=== PATIENT | female | born 1945 | race Caucasian/White ===

== ENCOUNTER 2018-05-21 15:12 | Outpatient (RCR) | payer SELFPAY | END 2018-05-25 23:59 | disposition home or self-care (01) | LOC: CR 15:12 | PROVIDERS: PCP Family Medicine; Visit Provider Family Medicine | DX: Z51.89 Encounter for other specified aftercare (principal); J84.10 Pulmonary fibrosis, unspecified; J98.4 Other disorders of lung | CPT/HCPCS: S9472 ==

== ENCOUNTER 2018-06-22 13:18 | Outpatient (RCR) | payer SELFPAY | END 2018-06-24 23:59 | disposition home or self-care (01) | LOC: CR 13:18 | PROVIDERS: PCP Family Medicine; Visit Provider Family Medicine | DX: Z51.89 Encounter for other specified aftercare (principal); J84.10 Pulmonary fibrosis, unspecified; J98.4 Other disorders of lung | CPT/HCPCS: S9472 ==

== ENCOUNTER 2018-07-23 13:00 | Outpatient (RCR) | payer SELFPAY | END 2018-07-25 23:59 | disposition home or self-care (01) | LOC: CR 13:00 | PROVIDERS: PCP Family Medicine; Visit Provider Family Medicine | DX: Z51.89 Encounter for other specified aftercare (principal); J84.10 Pulmonary fibrosis, unspecified; J98.4 Other disorders of lung | CPT/HCPCS: S9472 ==

== ENCOUNTER 2018-08-20 10:25 | Outpatient (CLI) | payer OTHER, SELFPAY ==
--- NOTE | 2018-08-20 09:57 | DI.RAD_ITS ---
SYMPTOMS/DIAGNOSIS: LOW BACK PAIN, RT HIP PAIN, M54.5, G89.29, OTHER CHRONIC PAIN, M25.551 LUMBAR SPINE: The exam is somewhat limited by overlying stool. There is no evidence of compression fracture, spondylolysis or spondylolisthesis. There are endplate osteophytes throughout. There is disc space narrowing at T 12 - L 1. The L 5 - S 1 disc space is not well maintained. There are facet degenerative changes greatest in the lower lumbar spine. IMPRESSION: Degenerative changes. PELVIS AND RIGHT HIP: The hip joint spaces are well maintained. There is no significant periarticular spurring. The SI joints appear intact. IMPRESSION: Negative pelvis and right hip.
[2018-08-20 11:31] LABS: ALT 24 U/L (12-78); AST 20 U/L (15-37); Albumin 3.6 g/dL (3.4-5.0); Alkaline Phosphatase 74 U/L (46-116); Anion Gap 7.3 mmol/L (3-11); BUN 12 mg/dL (7-18); Bilirubin, Total 0.3 mg/dL (0.2-1.0); CO2 28.7 mmol/L (21.0-32.0); CREATININE 1.12 mg/dL (0.55-1.02); Calcium 8.9 mg/dL (8.5-10.1); Chloride 103 mmol/L (98-107); Estimated GFR 47.96 (mL/min/1.73m2); Glucose 87 mg/dL (70-100); Potassium 4.2 mmol/L (3.5-5.1); Sodium 139 mmol/L (136-145); Total Protein 7.1 g/dL (6.4-8.2)
[2018-08-20 11:54] LABS: Cholesterol 223 mg/dL (50-200); HDL Cholesterol 54 mg/dL (40-60); Triglyceride 150 mg/dL (30-150)
[2018-08-20 12:40] LABS: LDL CHOLESTEROL 137 mg/dL (<100)
== END 2018-08-20 10:45 ==
PROVIDERS: PCP Family Medicine; Visit Provider Family Medicine
DX: M54.5 Low back pain (principal); M25.551 Pain in right hip; M47.817 Spondylosis without myelopathy or radiculopathy, lumbosacral region; G89.29 Other chronic pain; I10 Essential (primary) hypertension
CPT/HCPCS: 36415; 80053; 80061; 83721; 72110; 73502

== ENCOUNTER 2018-08-20 15:04 | Outpatient (RCR) | payer SELFPAY | END 2018-08-24 23:59 | disposition home or self-care (01) | LOC: CR 15:04 | PROVIDERS: PCP Family Medicine; Visit Provider Family Medicine | DX: J84.10 Pulmonary fibrosis, unspecified (principal); J98.4 Other disorders of lung; Z51.89 Encounter for other specified aftercare | CPT/HCPCS: S9472 ==

== ENCOUNTER 2018-08-23 01:16 | Outpatient (CLI) | payer OTHER, SELFPAY ==
--- NOTE | 2018-08-23 13:00 | DI.MAMMO_ITS ---
SYMPTOMS/DIAGNOSIS: SCREENING, Z12.31 MAMMOGRAM: Mammograms were interpreted according to the usual protocol including computer analysis with CAD system, tomosynthesis and C view imaging. The breasts are of moderate density with fairly symmetrical distribution of fibroglandular tissue. No dominant mass or clumped microcalcification is identified in either breast. The current examination is compared with previous examinations including March 2017 and there has been no gross interval change in appearance in comparison with the previous studies. CONCLUSION: No specific evidence of malignancy at this time. Routine screening examinations are suggested at yearly intervals in this age group according to the ACS/ACR guidelines. Category I. Breast density Category B. MQSA ASSESSMENT OF FINDINGS: Negative. Category 1. Patient will receive a letter notifying them of these results. BI-RADS category B. There are scattered areas of fibroglandular density.
== END 2018-08-23 01:36 ==
PROVIDERS: PCP Family Medicine; Visit Provider Family Medicine
DX: Z12.31 Encounter for screening mammogram for malignant neoplasm of breast (principal)
CPT/HCPCS: 77063; 77067

== ENCOUNTER 2018-08-25 03:49 | Outpatient (RCR) | payer SELFPAY | END 2018-09-24 23:59 | LOC: CR 03:49 | PROVIDERS: PCP Family Medicine; Visit Provider Family Medicine | DX: J84.10 Pulmonary fibrosis, unspecified (principal); J98.4 Other disorders of lung; Z51.89 Encounter for other specified aftercare ==

== ENCOUNTER 2018-10-22 13:17 | Outpatient (RCR) | payer SELFPAY | END 2018-10-25 23:59 | disposition home or self-care (01) | LOC: CR 13:17 | PROVIDERS: PCP Family Medicine; Visit Provider Family Medicine | DX: J84.10 Pulmonary fibrosis, unspecified (principal); J98.4 Other disorders of lung; Z51.89 Encounter for other specified aftercare | CPT/HCPCS: S9472 ==

== ENCOUNTER 2018-11-14 13:02 | Outpatient (RCR) | payer SELFPAY | END 2018-11-22 23:59 | disposition home or self-care (01) | LOC: CR 13:02 | PROVIDERS: PCP Family Medicine; Visit Provider Family Medicine | DX: J84.10 Pulmonary fibrosis, unspecified (principal); J98.4 Other disorders of lung; Z51.89 Encounter for other specified aftercare | CPT/HCPCS: S9472 ==

== ENCOUNTER 2018-12-05 13:42 | Outpatient (RCR) | payer SELFPAY | END 2018-12-23 23:59 | disposition home or self-care (01) | LOC: CR 13:42 | PROVIDERS: PCP Family Medicine; Visit Provider Family Medicine | DX: J84.10 Pulmonary fibrosis, unspecified (principal); J98.4 Other disorders of lung; Z51.89 Encounter for other specified aftercare | CPT/HCPCS: S9472 ==

== ENCOUNTER 2019-01-16 13:00 | Outpatient (RCR) | payer SELFPAY | END 2019-01-22 23:59 | disposition home or self-care (01) | LOC: CR 13:00 | PROVIDERS: PCP Family Medicine; Visit Provider Family Medicine | DX: J84.10 Pulmonary fibrosis, unspecified (principal); J98.4 Other disorders of lung; Z51.89 Encounter for other specified aftercare | CPT/HCPCS: S9472 ==

== ENCOUNTER 2019-01-23 04:34 | Outpatient (RCR) | payer SELFPAY | END 2019-02-22 23:59 | disposition home or self-care (01) | LOC: CR 04:34 | PROVIDERS: PCP Family Medicine; Visit Provider Family Medicine | DX: J84.10 Pulmonary fibrosis, unspecified (principal); J98.4 Other disorders of lung; Z51.89 Encounter for other specified aftercare ==

== ENCOUNTER 2019-02-24 03:53 | Outpatient (RCR) | payer SELFPAY | END 2019-03-24 23:59 | disposition home or self-care (01) | LOC: CR 03:53 | PROVIDERS: PCP Family Medicine; Visit Provider Family Medicine | DX: J84.10 Pulmonary fibrosis, unspecified (principal); J98.4 Other disorders of lung; Z51.89 Encounter for other specified aftercare ==

== ENCOUNTER 2019-03-25 15:01 | Outpatient (RCR) | payer SELFPAY | END 2019-04-24 23:59 | disposition home or self-care (01) | LOC: CR 15:01 | PROVIDERS: PCP Family Medicine; Visit Provider Family Medicine | DX: J84.10 Pulmonary fibrosis, unspecified (principal); J98.4 Other disorders of lung; Z51.89 Encounter for other specified aftercare ==

== ENCOUNTER 2019-04-25 05:09 | Outpatient (RCR) | payer SELFPAY | END 2019-05-25 23:59 | disposition home or self-care (01) | LOC: CR 05:09 | PROVIDERS: PCP Family Medicine; Visit Provider Family Medicine | DX: J84.10 Pulmonary fibrosis, unspecified (principal); J98.4 Other disorders of lung; Z51.89 Encounter for other specified aftercare ==

== ENCOUNTER 2019-06-10 13:22 | Outpatient (RCR) | payer SELFPAY | END 2019-06-24 23:59 | disposition home or self-care (01) | LOC: CR 13:22 | PROVIDERS: PCP Family Medicine; Visit Provider Family Medicine | DX: J84.10 Pulmonary fibrosis, unspecified (principal); J98.4 Other disorders of lung; Z51.89 Encounter for other specified aftercare | CPT/HCPCS: S9472 ==

== ENCOUNTER 2019-06-25 06:12 | Outpatient (RCR) | payer SELFPAY ==
--- NOTE | 2019-08-06 13:31 | PR3E_ITS ---
Wen completed Phase 2 of Pulmonary Rehabilitation for management of restrictive lung disease in 2015 and decided to join the outpatient maintenance phase to continue her physical activity. She joined the maintenance program in May of 2016 and attended regularly (3 days per week) through June of 2019. At this time patient is unable to continue her commitment to the maintenance program. We will gladly assist patient with obtaining a new referral in the future should she want to re-join the maintenance program at any time.
== END 2019-07-25 23:59 | disposition home or self-care (01) ==
LOC: CR 06:12
PROVIDERS: PCP Family Medicine; Visit Provider Family Medicine
DX: J84.10 Pulmonary fibrosis, unspecified (principal); J98.4 Other disorders of lung; Z51.89 Encounter for other specified aftercare

== ENCOUNTER 2019-08-26 07:00 | Outpatient (CLI) | payer OTHER, SELFPAY ==
[2019-08-26 12:47] LABS: Hemoglobin A1C 5.8 % (4.5-6.2)
[2019-08-26 12:51] LABS: ALT 24 U/L (14-59); AST 19 U/L (15-37); Albumin 3.7 g/dL (3.4-5.0); Alkaline Phosphatase 74 U/L (46-116); Anion Gap 7.6 mmol/L (3-11); BUN 14 mg/dL (7-18); Bilirubin, Total 0.3 mg/dL (0.2-1.0); CO2 31.4 mmol/L (21.0-32.0); Calcium 9.7 mg/dL (8.5-10.1); Calculated LDL 145 mg/dL; Chloride 103 mmol/L (98-107); Cholesterol 233 mg/dL (<200); Estimated GFR 44.16 (mL/min/1.73m2); Glucose 84 mg/dL (74-106); HDL Cholesterol 49 mg/dL (40-60); Potassium 4.7 mmol/L (3.5-5.1); Sodium 142 mmol/L (136-145); TSH (W/Ref FT4) 3.87 uIU/mL (0.36-3.74); Total Protein 7.3 g/dL (6.4-8.2); Triglyceride 199 mg/dL (<150)
[2019-08-26 13:13] LABS: FREE T4 0.76 ng/dL (0.76-1.46)
== END 2019-08-26 07:20 ==
PROVIDERS: PCP Family Medicine; Visit Provider Family Medicine
DX: E11.9 Type 2 diabetes mellitus without complications (principal); I10 Essential (primary) hypertension; R06.02 Shortness of breath; I27.20 Pulmonary hypertension, unspecified; J98.4 Other disorders of lung
CPT/HCPCS: 36415; 80053; 80061; 83036; 84439; 84443

== ENCOUNTER 2019-09-03 01:11 | Outpatient (CLI) | payer OTHER, SELFPAY ==
[2019-09-03] MEDS: Omnipaque 350 MG/ML 100 ML BTL IJ (14:58)
[2019-09-03] MEDS: Normal Saline Flush 10 ML SYR IVP (14:59)
--- NOTE | 2019-09-03 15:00 | DI.CT_ITS ---
EXAM: CT CHEST W CLINICAL HISTORY: SOB R06.02; PULMONARY HTN I27.20; H/O DVT Z86.718 TECHNIQUE: Post IV contrast CHEST FOR PULMONARY EMBOLUS from 12/29/2015 FINDINGS: Heart size is normal. No pleural or pericardial effusions are seen. There is again noted to be chacha vation of the right diaphragm. There is adjacent basilar atelectasis. The liver is enlarged and sharan ws mild fatty infiltration. A hiatal hernia is seen. There is fluid in the lower esophagus which co uld indicate reflux. There are no visible emphysematous or fibrotic changes. There is no evidence o f bronchiectasis, infiltrate, pleural or pericardial effusion. There is mild dilatation of the main pulmonary arteries. IMPRESSION: Mild dilatation of the pulmonary arteries consistent with patient's history of pulmonary hypertension . Stable elevation of the right diaphragm. Hiatal hernia.
== END 2019-09-03 01:31 ==
PROVIDERS: PCP Family Medicine; Visit Provider Family Medicine
DX: I27.20 Pulmonary hypertension, unspecified (principal); R06.02 Shortness of breath; Z86.718 Personal history of other venous thrombosis and embolism; K44.9 Diaphragmatic hernia without obstruction or gangrene
CPT/HCPCS: 71260; J3490

== ENCOUNTER 2019-09-05 00:38 | Outpatient (CLI) | payer OTHER, SELFPAY ==
--- NOTE | 2019-09-05 07:48 | DI.US_ITS ---
APPROVED REPORT EXAM: Comprehensive 2D, Doppler, and color-flow Echocardiogram Patient Location: Out-Patient Bicycle Mechanic: Corrie Edmonds RDCS (AE) Rhythm: NSR Indications: SOB pulm HTN Restrictive lung disease r06.02, i27.20, j98.4 Conclusion Left Ventricle : The left ventricle is normal size. The left ventricular systolic function is normal. The left ventricular ejection fraction is within the normal range. Top normal left ventricular wall thickeness There is normal LV segmental wall motion. Diastolic function is indeterminate but there is evidence of abnormal relaxation with elevated filling pressures. LVEF is estimated to be 55-60%. Right Ventricle : The right ventricle appears normal size. The right ventricular systolic function ap pears normal. Atria : The left atrium size is top normal. The right atrium size is normal. Aortic Valve : The Aortic valve is mildly sclerotic. Aortic valve is trileaflet. There is no aortic v alvular stenosis. Trace aortic regurgitation. Mitral Valve : Mitral valve leaflets are thickened. Mild mitral annular calcification. No evidence of mitral valve stenosis. Tricuspid Valve : The tricuspid valve leaflets are thickened mildly , but open well. Trivial to mild tricuspid regurgitation. Great Vessels : The ascending aorta is dilated (3.9cm). The IVC was not well visualized. Estimated R VSP is 30 mmHg +RAP. Compared to prior echocardiogram dated 11/27/2015: Estimated RVSP has decreased. There are no other si gnificant changes. Wall motion Left Ventricle The left ventricle is normal size. The left ventricular systolic function is normal. The left ventric ular ejection fraction is within the normal range. Top normal left ventricular wall thickeness There is normal LV segmental wall motion. Diastolic function is indeterminate but there is evidence of abno rmal relaxation with elevated filling pressures. LVEF is estimated to be 55-60%. Right Ventricle The right ventricle appears normal size. The right ventricular systolic function appears normal. Atria The left atrium size is top normal. The right atrium size is normal. Aortic Valve The Aortic valve is mildly sclerotic. Aortic valve is trileaflet. There is no aortic valvular stenosi s. Trace aortic regurgitation. Mitral Valve Mitral valve leaflets are thickened. Mild mitral annular calcification. No evidence of mitral valve s tenosis. Mild mitral regurgitation. Tricuspid Valve The tricuspid valve leaflets are thickened mildly , but open well. Trivial to mild tricuspid regurgit ation. Pulmonic Valve Pulmonic valve is not well visualized. Great Vessels The aortic root is normal in size. The ascending aorta is dilated (3.9cm). The IVC was not well visua lized. Estimated RVSP is 30 mmHg +RAP. Pericardium There is no pericardial effusion. 2D Dimensions IVSd 1.05 cm F: 0.6-1.0 LV EDV A2C 72.00 mL PWd 1.00 cm F: 0.6 - 1.0 LV EDV A4C 105.80 mL LVDd 4.50 cm F: 3.8 - 5.2 LA Volume Index A2C 22.09 mL/m2 LVDs 2.70 cm F: 2.2 - 3.5 LA Volume Index A4C 25.56 mL/m2 Aortic Root 3.25 cm F: 2.7 - 3.3 LA Volume Index Biplane 23.97 mL/m2 RVID Base (AP4) 3.90 cm (M/F) 2.5-4.1 LA Area A4C 17.78 cm2 RA Area A4C 14.40 cm2 LA Area A2C 16.38 cm2 LVOT 1.85 cm (M/F) 1.5-2.5 EF AP4 51.80 % Ascending Aorta 3.91 cm F: 2.3 - 3.1 EF AP2 60.42 % LVEF (Teich) 70.26 % EF BP 56.29 % LVEF (Seymour's) 56.29 % F: 54 - 74 LV Volume 66.52 mL F: 46 - 106 LV Volume Index 34.28 mL/m2 F: 29 - 61 FS 39.55 % LV Diastology E/A Ratio 0.5 MED E' 0.04 (>0.07 m/s) LV E/e MED 15.00 (<14) LAT E' 0.04 (>0.1 m/s) LV E/e LAT 12.65 (<14) Pulm Vein s 0.48 m/s PV S/D Ratio 1.36 Pulm Vein d 0.35 m/s Pulm Vein a 0.32 m/s A-A Duration 118.79 msec Aortic Valve LVOT Area 2.72 cm2 LVOT Peak Aristeo. 0.80 m/s LVOT Mean Aristeo. 0.64 m/s LVOT Peak Gr. 2.85 mmHg FLORI Vmax Index 0.78 cm2/m2 LVOT Mean Gr. 1.75 mmHg LVOT VTI 0.20 m FLORI Mean Aristeo. Index 0.77 cm2/m2 AoV Peak Aristeo. 1.52 (0.5-1.3 m/s) AoV Mean Aristeo. 1.16 m/s AO Peak GR. 9.19 mmHg AO Mean GR. 5.67 (<5 mmHg) VTI Ratio 0.68 FLORI (VTI) 0.95 (2.5-4.5 cm2) FLORI (VTI) Index 0.95 cm/m2 Mitral Valve MV E Max Aristeo. 0.56 (0.4-1.3 m/s) MVA VTI 4.03 (4.0-6.0 cm2) MV A Velocity 1.05 (0.4-1.3 m/s) E/A Ratio 0.52 MV Decel. Time 355.20 (160-240 msec) MV PHT 103.02 msec MVA PHT 2.10 cm2 Tricuspid Valve TR P. Velocity 2.73 m/s TV Regurg Vmax 2.73 m/s RAP Estimate 8.00 mmHg RVSP 38.00 mmHg TR P. Gradient 29.80 mmHg
== END 2019-09-05 00:58 ==
PROVIDERS: PCP Family Medicine; Visit Provider Family Medicine
DX: I27.20 Pulmonary hypertension, unspecified (principal); R06.02 Shortness of breath; J98.4 Other disorders of lung; I10 Essential (primary) hypertension
CPT/HCPCS: 93306

== ENCOUNTER 2019-10-09 15:39 | Outpatient (CLI) | payer OTHER, SELFPAY ==
--- NOTE | 2019-10-09 15:32 | DI.RAD_ITS ---
EXAM: XR CHEST 2V PA AND LATERAL INDICATION: COUGH, SOB, ACUTE URI, J06.9, R06.02, R05. COMPARISON: CHEST 2 VIEWS PA,LAT from 10/23/2015 TECHNIQUE: 2D digital imaging was performed. FINDINGS: Heart size and pulmonary vasculature are stable and within normal limits. There is stable elevation of the right hemidiaphragm. Lungs are clear. No pleural effusion or pneumothorax is identified. Ag e-appropriate degenerative changes are seen in the spine. IMPRESSION: No acute pulmonary process.
== END 2019-10-09 15:59 ==
PROVIDERS: PCP Family Medicine; Visit Provider Family Medicine
DX: R05 Cough (principal); R06.02 Shortness of breath; J06.9 Acute upper respiratory infection, unspecified
CPT/HCPCS: 71046

== ENCOUNTER 2019-11-04 07:55 | Outpatient (CLI) | payer OTHER, SELFPAY ==
[2019-11-04 11:27] LABS: TSH (W/Ref FT4) 2.93 uIU/mL (0.36-3.74)
== END 2019-11-04 08:15 ==
PROVIDERS: PCP Family Medicine; Visit Provider Family Medicine
DX: E03.9 Hypothyroidism, unspecified (principal)
CPT/HCPCS: 36415; 84443

== ENCOUNTER 2020-03-04 01:32 | Outpatient (CLI) | payer MEDICARE, SELFPAY ==
[2020-03-04 10:52] LABS: Bilirubin Negative (Negative); Blood Trace-intact (Negative); Clarity Cloudy (Clear); Glucose Negative (Negative); Ketones Negative (Negative); Leukocyte Esterase Small (Negative); Nitrite Positive (Negative); Urobilinogen 0.2 EU/dL (Up TO 0.2)
[2020-03-04 11:07] LABS: Bacteria Many HPF (Negative)
[2020-03-04 11:08] LABS: C & S Indicated? No/Sq. Contamination; Epithelial Cells Many HPF (Negative)
[2020-03-04 11:09] LABS: TSH (W/Ref FT4) 2.11 uIU/mL (0.36-3.74)
== END 2020-03-04 01:52 ==
PROVIDERS: PCP Family Medicine; Visit Provider Family Medicine
DX: E03.9 Hypothyroidism, unspecified (principal); R30.0 Dysuria; G47.30 Sleep apnea, unspecified
CPT/HCPCS: 36415; 81003; 81015; 84443

== ENCOUNTER 2021-02-02 10:03 | Outpatient (REF) | payer MEDICARE, SELFPAY ==
[2021-02-02 13:38] LABS: HCT 41.6 % (36.0-46.0); HGB 13.3 g/dL (11.2-15.7); MCH 31.4 pg (27.0-33.0); MCV 98.1 fL (80-95); MPV 10.7 fL (8.0-11.0); Platelet Count 271 10^3/uL (130-400); RBC 4.24 10^6/uL (3.93-5.22); RDW 13.9 % (11.7-14.6); RDW-SD 50.3 fL; WBC 6.42 10^3/uL (4.4-10.8)
[2021-02-02 14:12] LABS: ALT 41 U/L (14-59); AST 24 U/L (15-37); Albumin 3.7 g/dL (3.4-5.0); Alkaline Phosphatase 80 U/L (46-116); Anion Gap 7.6 mmol/L (3-11); BUN 17 mg/dL (7-18); Bilirubin, Total 0.3 mg/dL (0.2-1.0); CO2 30.4 mmol/L (21.0-32.0); CREATININE 1.4 mg/dL (0.55-1.02); Calcium 9.5 mg/dL (8.5-10.1); Calculated LDL 111 mg/dL (<100); Chloride 103 mmol/L (98-107); Cholesterol 196 mg/dL (<200); Estimated GFR 36.86 (mL/min/1.73m2); Glucose 94 mg/dL (74-106); HDL Cholesterol 50 mg/dL (40-60); Potassium 4.3 mmol/L (3.5-5.1); Sodium 141 mmol/L (136-145); Total Protein 7.3 g/dL (6.4-8.2); Triglyceride 178 mg/dL (<150)
[2021-02-02 14:18] LABS: Hemoglobin A1C 5.5 % (<5.7)
== END 2021-02-02 10:04 | disposition home or self-care (01) ==
LOC: LBN 10:03
PROVIDERS: PCP Family Medicine; Visit Provider Family Medicine
DX: E11.9 Type 2 diabetes mellitus without complications (principal); E78.5 Hyperlipidemia, unspecified; E03.9 Hypothyroidism, unspecified; J98.4 Other disorders of lung; I07.1 Rheumatic tricuspid insufficiency; G25.81 Restless legs syndrome; G47.30 Sleep apnea, unspecified
CPT/HCPCS: 80053; 80061; 85027; 83036; 84443

== ENCOUNTER 2022-04-15 02:28 | Outpatient (CLI) | payer MEDICARE, SELFPAY ==
[2022-04-15 13:08] LABS: Hemoglobin A1C 5.7 % (<5.7)
[2022-04-15 13:14] LABS: ALT 26 U/L (14-59); AST 25 U/L (15-37); Albumin 3.5 g/dL (3.4-5.0); Alkaline Phosphatase 69 U/L (46-116); Anion Gap 10.7 mmol/L (3-11); BUN 24 mg/dL (7-18); Bilirubin, Total 0.4 mg/dL (0.2-1.0); CO2 27.3 mmol/L (21.0-32.0); CREATININE 1.4 mg/dL (0.55-1.02); Calcium 9.3 mg/dL (8.5-10.1); Calculated LDL 110 mg/dL (<100); Chloride 101 mmol/L (98-107); Cholesterol 182 mg/dL (<200); Estimated GFR 36.66 (mL/min/1.73m2); Glucose 82 mg/dL (74-106); HDL Cholesterol 46 mg/dL (40-60); Potassium 4.2 mmol/L (3.5-5.1); Sodium 139 mmol/L (136-145); TSH (W/Ref FT4) 1.52 uIU/mL (0.36-3.74); Total Protein 7.3 g/dL (6.4-8.2); Triglyceride 130 mg/dL (<150)
== END 2022-04-15 02:29 | disposition home or self-care (01) ==
LOC: LOS 02:28
PROVIDERS: PCP Family Medicine; Visit Provider Family Medicine
DX: I10 Essential (primary) hypertension (principal); E78.5 Hyperlipidemia, unspecified; E11.9 Type 2 diabetes mellitus without complications; E66.8 Other obesity; Z68.42 Body mass index [BMI] 45.0-49.9, adult
CPT/HCPCS: 36415; 80053; 80061; 83036; 84443

== ENCOUNTER 2022-08-30 14:44 | Outpatient (CLI) | payer MEDICARE, SELFPAY ==
--- NOTE | 2022-08-30 13:45 | DI.RAD_ITS ---
Exam(s) XR FOOT RT COMPLETE EXAM: XR FOOT RT COMPLETE CLINICAL HISTORY: evaluate pathology,rt foot pain, m79.671. TECHNIQUE: 2D digital imaging was performed of the right foot. Three images were obtained. AP, obl ique and lateral views were obtained. COMPARISON: No exams were available for comparison FINDINGS: BONES: No acute fracture is present. No bony destructive lesion is seen. JOINTS: No dislocation present. There are degenerative changes seen at the 1st MTP joint with periart icular spurring present. SOFT TISSUE: Normal. IMPRESSION: Degenerative changes of the right foot predominantly at the 1st MTP joint. No acute abnormality. DATA REPOSITORY: RADIATION DOSE DELIVERED:
== END 2022-08-30 15:04 ==
LOC: DI 14:45
PROVIDERS: PCP Family Medicine; Visit Provider Nurse Practitioner Family
DX: M19.071 Primary osteoarthritis, right ankle and foot (principal)
CPT/HCPCS: 73630

== ENCOUNTER 2022-12-21 09:30 | Outpatient (CLI) | payer MEDICARE, SELFPAY ==
[2022-12-21 12:33] LABS: HCT 40.8 % (36.0-46.0); HGB 13.2 g/dL (11.2-15.7); MCH 31.5 pg (27.0-33.0); MCHC 32.4 % (32.0-36.0); MCV 97 fL (80-95); Platelet Count 324 10^3/uL (130-400); RBC 4.19 10^6/uL (3.93-5.22); RDW 13.7 % (11.7-14.6); RDW-SD 48.8 fL; WBC 6.35 10^3/uL (4.4-10.8)
[2022-12-21 12:57] LABS: ALT 28 U/L (14-59); AST 20 U/L (15-37); Albumin 3.4 g/dL (3.4-5.0); Alkaline Phosphatase 80 U/L (46-116); Anion Gap 5.7 mmol/L (3-11); BUN 20 mg/dL (7-18); Bilirubin, Total 0.3 mg/dL (0.2-1.0); CO2 30.3 mmol/L (21.0-32.0); CREATININE 1.4 mg/dL (0.55-1.02); Calcium 8.8 mg/dL (8.5-10.1); Calculated LDL 102 mg/dL (<100); Chloride 104 mmol/L (98-107); Cholesterol 191 mg/dL (<200); Estimated GFR 39.23 (mL/min/1.73m2); Glucose 94 mg/dL (74-106); HDL Cholesterol 53 mg/dL (40-60); Potassium 4.1 mmol/L (3.5-5.1); Sodium 140 mmol/L (136-145); TSH (W/Ref FT4) 3.14 uIU/mL (0.36-3.74); Total Protein 7.3 g/dL (6.4-8.2); Triglyceride 183 mg/dL (<150)
== END 2022-12-21 09:31 | disposition home or self-care (01) ==
LOC: LOS 09:30
PROVIDERS: PCP Family Medicine; Visit Provider Family Medicine
DX: E03.9 Hypothyroidism, unspecified (principal); I10 Essential (primary) hypertension; F41.8 Other specified anxiety disorders; F32.89 Other specified depressive episodes; R73.03 Prediabetes; I27.20 Pulmonary hypertension, unspecified
CPT/HCPCS: 36415; 80053; 80061; 85027; 84443

== ENCOUNTER → 2023-06-06 00:48 | Outpatient (CLI) | payer MEDICARE, SELFPAY ==
--- NOTE | 2023-06-06 07:30 | DI.DEXA_ITS ---
Exam(s) XR DEXA BONE DENSITY W/WO MONICA EXAM: XR DEXA BONE DENSITY W/WO MONICA CLINICAL HISTORY: screening for osteoporosis in postmenopausal woman,z78.0 TECHNIQUE: [employer] Horizon C densitometer analysis of left hip, lumbar spine and left forearm. Lat eral survey image of the thoracic and lumbar spine. COMPARISON: 2003 FINDINGS: Lateral view of the thoracic and lumbar spine shows no evidence of compression fractures. Bone mineral density measurements of the lumbar spine correspond to a total T-score of 2.0, in the n ormal range. This represents a 16.1 percent increase from 2003. the increase in bone mineral density could be in part due to increasing degenerative changes. Bone mineral density measurements of the left hip correspond to a total T-score of 1.3 . The femoral neck T-score is -0.3, in the normal range. This represents a 5.2 percent increase from the prior e xam.. Theleft forearm bone mineral density measurements correspond to a T-score of the distal 3rd of 0.5, i n the normal range. The forearm was not analyzed on the prior exam . IMPRESSION: Normal bone mineral density
--- NOTE | 2023-06-06 10:09 | DI.MAMMO_ITS ---
Exam(s) MAMMO SCREENING EXAM: MAMMO SCREENING CLINICAL HISTORY: screening, z12.39 TECHNIQUE: Mammograms were interpreted according to the usual protocol including computer analysis w [employer] CAD system, tomosynthesis and C-view imaging. COMPARISON: 2013 through 2017 FINDINGS: The breasts are composed of scattered fibroglandular densities, Breast Density category B. No suspicious masses or suspicious microcalcifications are seen. Scattered bilateral coarse calcific ations again noted. No skin thickening or abnormal axillary lymph nodes are seen. There has been no significant change from prior exams. IMPRESSION: BI-RADS Cat 2 - Benign Findings Yearly screening mammography is recommended. Breast Density - Category B, scattered fibroglandular densities. A negative radiographic report should not delay biopsy if a dominant or clinically suspicious mass is present. Up to ten percent of cancers are not identified on mammography. A negative report may reinforce clinical impression. Adenosis and dense breasts may obscure an underlying neoplasm. False positive reports average 6 to 10%. Patient will receive a letter notifying them of these results.
== END ==
PROVIDERS: PCP Family Medicine; Visit Provider Family Medicine
DX: Z78.0 Asymptomatic menopausal state (principal); Z12.31 Encounter for screening mammogram for malignant neoplasm of breast; Z13.820 Encounter for screening for osteoporosis
CPT/HCPCS: 77063; 77067; 77080

== ENCOUNTER 2023-07-13 04:53 | Outpatient (CLI) | payer MEDICARE, SELFPAY ==
[2023-07-13 12:41] LABS: Hemoglobin A1C 5.3 % (<5.7)
[2023-07-13 12:44] LABS: ALT 25 U/L (14-59); AST 20 U/L (15-37); Albumin 3.4 g/dL (3.4-5.0); Alkaline Phosphatase 71 U/L (46-116); BUN 24 mg/dL (7-18); Bilirubin, Total 0.4 mg/dL (0.2-1.0); CREATININE 1.5 mg/dL (0.55-1.02); Calcium 9.4 mg/dL (8.5-10.1); Calculated LDL 145 mg/dL (<100); Chloride 103 mmol/L (98-107); Cholesterol 218 mg/dL (<200); Estimated GFR 35.89 (mL/min/1.73m2); Glucose 87 mg/dL (74-106); HDL Cholesterol 49 mg/dL (40-60); Potassium 4.3 mmol/L (3.5-5.1); Sodium 140 mmol/L (136-145); TSH (W/Ref FT4) 1.61 uIU/mL (0.36-3.74); Total Protein 7.6 g/dL (6.4-8.2); Triglyceride 124 mg/dL (<150)
== END 2023-07-13 04:54 | disposition home or self-care (01) ==
LOC: LOS 04:53
PROVIDERS: PCP Family Medicine; Visit Provider Family Medicine
DX: E11.9 Type 2 diabetes mellitus without complications (principal); E78.5 Hyperlipidemia, unspecified; R73.03 Prediabetes; Z68.42 Body mass index [BMI] 45.0-49.9, adult
CPT/HCPCS: 36415; 80053; 80061; 83036; 84443

== ENCOUNTER 2023-10-19 03:57 | Outpatient (CLI) | payer MEDICARE, SELFPAY ==
[2023-10-19 12:44] LABS: ALT 28 U/L (14-59); AST 22 U/L (15-37); Albumin 3.7 g/dL (3.4-5.0); Alkaline Phosphatase 72 U/L (46-116); Anion Gap 6.8 mmol/L (3-11); BUN 26 mg/dL (7-18); Bilirubin, Total 0.6 mg/dL (0.2-1.0); CO2 30.2 mmol/L (21.0-32.0); CREATININE 1.4 mg/dL (0.55-1.02); Calcium 9.6 mg/dL (8.5-10.1); Calculated LDL 86 mg/dL (<100); Chloride 101 mmol/L (98-107); Cholesterol 159 mg/dL (<200); Estimated GFR 38.99 (mL/min/1.73m2); Glucose 83 mg/dL (74-106); HDL Cholesterol 58 mg/dL (40-60); Potassium 4.1 mmol/L (3.5-5.1); Sodium 138 mmol/L (136-145); TSH (W/Ref FT4) 1.84 uIU/mL (0.36-3.74); Total Protein 7.9 g/dL (6.4-8.2); Triglyceride 76 mg/dL (<150)
== END 2023-10-19 03:58 | disposition home or self-care (01) ==
LOC: LOS 03:57
PROVIDERS: PCP Family Medicine; Visit Provider Family Medicine
DX: I10 Essential (primary) hypertension (principal); E03.9 Hypothyroidism, unspecified
CPT/HCPCS: 36415; 80053; 80061; 82043; 82570; 84443

== ENCOUNTER 2023-10-20 11:21 | Outpatient (REF) | payer MEDICARE, SELFPAY ==
[2023-10-20 13:59] LABS: COMMENT (LAB VIEW ONLY) 77.17 mg/dL; Microalb ug/mg Crea 18.8 ug/mg Cr
== END 2023-10-20 11:22 | disposition home or self-care (01) ==
LOC: LBN 11:21
PROVIDERS: PCP Family Medicine; Visit Provider Family Medicine
DX: E11.9 Type 2 diabetes mellitus without complications (principal)
CPT/HCPCS: 82043; 82570

== ENCOUNTER 2024-06-28 00:57 | Inpatient (IN) | payer OTHER, SELFPAY ==
[2024-06-28] VITALS (57 sets, daily range): BP systolic 94–203; BP diastolic 55–92; PULSE 56–78; RESP 2–28; TEMP 36.4–37.5; O2SAT 2–100
--- NOTE | 2024-06-28 00:45 | RT.EKG_ITS ---
APPROVED REPORT Exam: Resting ECG Reason for Exam: trouble brathing Patient Location: E HR:60 bpm ECG Measurements Heart Rate 60 AXIS AL 176 P 9 QRSd 107 QRS -32 QT 436 T 28 QTc 437 Conclusion Sinus rhythm...normal P axis, V-rate 60- 99 Probable left atrial enlargement...P >50mS, <-0.10mV V1 Left ventricular hypertrophy...multiple LVH criteria Normal Martin Nonspecific ST-T changes
--- NOTE | 2024-06-28 01:03 | W.ED.GENAD ---
Discharge Plan Disposition Patient Disposition: Admit to [facility] Condition: Fair Discharge Details Clinical Impression: Ground glass opacity present on imaging of lung, Hypoxemia Primary Care Provider: Scarlet So ED Provider: Shahzad Tompkins [place] Meds and New Rx's Prescriptions: No Action fluticasone propionate 50 mcg/actuation spray,suspension 1 spray NS BID PRN (Reason: nasal congestion) Qty: 1 7RF albuterol sulfate [ProAir HFA] 90 mcg/actuation HFA aerosol inhaler 1 - 2 puff Inhalation Q4H PRN Qty: 1 4RF lorazepam 0.5 mg tablet 0.5 mg PO DAILY PRN (Reason: anxiety) Qty: 30 0RF nystatin 100,000 unit/gram powder 1 applic topical QID Qty: 60 0RF Rx Instructions: apply powder every 6 hours x 2weeks and as needed oxybutynin chloride 5 mg tablet 5 mg PO BID Qty: 180 3RF Rx Instructions: DITROPAN escitalopram oxalate 20 mg tablet 20 mg PO DAILY Qty: 90 3RF metoprolol succinate 25 mg tablet extended release 24 hr 25 mg PO DAILY Qty: 90 3RF losartan 100 mg tablet 100 mg PO DAILY Qty: 90 3RF amitriptyline 100 mg tablet 100 mg PO HS Qty: 90 4RF semaglutide (weight loss) 0.5 mg/0.5 mL pen injector 0.5 mg subcut QWEEK Qty: 8 4RF Rx Instructions: ok to compound. DO not issue a pen injector levothyroxine 50 mcg tablet 50 mcg PO DAILY Qty: 90 4RF atorvastatin 40 mg tablet 40 mg PO DAILY Qty: 90 3RF acetaminophen [Tylenol] 325 MG tablet 650 mg PO Q4H PRN PRN HPI General Mode of arrival: ambulatory. Date/Time Provider Initiated Documentation: 06/28/24 01:01. Limitations to Documentation: no limitations. Information obtained by: patient, RN notes reviewed and old records reviewed. HPI Narrative: Patient presents to ED with complaint of sore throat, cough, hoarseness, shortness of breath. Patient reports sore throat began this afternoon. This evening she has developed a cough and is hoarse. She is short of breath with exertion. She denies any fever, chest pain, abdominal pain. She has had 2 episodes of posttussive emesis. Denies any diarrhea. Did get her RSV and COVID shot 2 weeks ago. She is supposed to be getting her flu shot this weekend. Denies any lung disease but old records report restrictive lung disease. She is not, however, typically on oxygen. Related Data Home Medications ?Medication ?Instructions ?Recorded ?Confirmed acetaminophen 325 mg tablet 650 mg PO Q4H PRN PRN 10/23/17 06/28/24 (Tylenol) fluticasone propionate 50 1 spray NS BID PRN nasal 08/26/19 06/28/24 mcg/actuation nasal congestion ##1 spray,suspension albuterol sulfate 90 mcg/actuation 1 - 2 puff inhalation Q4H PRN ##1 02/02/21 06/28/24 aerosol inhaler (ProAir HFA) lorazepam 0.5 mg tablet 0.5 mg PO DAILY PRN anxiety #30 01/07/22 06/28/24 tabs nystatin 100,000 unit/gram topical 1 applic topical QID #60 grams 05/26/23 06/28/24 powder oxybutynin chloride 5 mg tablet 5 mg PO BID #180 tab-caps 10/16/23 06/28/24 escitalopram oxalate 20 mg tablet 20 mg PO DAILY #90 tab-caps 01/18/24 06/28/24 losartan 100 mg tablet 100 mg PO DAILY #90 tabs 01/29/24 06/28/24 metoprolol succinate 25 mg 25 mg PO DAILY #90 tabs 01/29/24 06/28/24 tablet,extended release 24 hr amitriptyline 100 mg tablet 100 mg PO HS #90 tabs 02/06/24 06/28/24 semaglutide (weight loss) 0.5 0.5 mg (0.5 mL) subcut QWEEK #8 mL 05/03/24 06/28/24 mg/0.5 mL subcutaneous pen injector atorvastatin 40 mg tablet 40 mg PO DAILY #90 tabs 05/21/24 06/28/24 levothyroxine 50 mcg tablet 50 mcg PO DAILY #90 tabs 05/21/24 06/28/24 Previous Rx's ?Medication ?Instructions ?Recorded fluticasone propionate 50 1 spray NS BID PRN nasal 08/26/19 mcg/actuation nasal congestion ##1 spray,suspension albuterol sulfate 90 mcg/actuation 1 - 2 puff inhalation Q4H PRN ##1 02/02/21 aerosol inhaler (ProAir HFA) lorazepam 0.5 mg tablet 0.5 mg PO DAILY PRN anxiety #30 01/07/22 tabs nystatin 100,000 unit/gram topical 1 applic topical QID #60 grams 05/26/23 powder oxybutynin chloride 5 mg tablet 5 mg PO BID #180 tab-caps 10/16/23 escitalopram oxalate 20 mg tablet 20 mg PO DAILY #90 tab-caps 01/18/24 losartan 100 mg tablet 100 mg PO DAILY #90 tabs 01/29/24 metoprolol succinate 25 mg 25 mg PO DAILY #90 tabs 01/29/24 tablet,extended release 24 hr amitriptyline 100 mg tablet 100 mg PO HS #90 tabs 02/06/24 semaglutide (weight loss) 0.5 0.5 mg (0.5 mL) subcut QWEEK #8 mL 05/03/24 mg/0.5 mL subcutaneous pen injector atorvastatin 40 mg tablet 40 mg PO DAILY #90 tabs 05/21/24 levothyroxine 50 mcg tablet 50 mcg PO DAILY #90 tabs 05/21/24 Allergies Allergy/AdvReac Type Severity Reaction Status Date / Time gemfibrozil AdvReac Mild Pt Unverified 06/28/24 01:06 believes medicatation was ineffective lisinopril AdvReac Mild COUGH Unverified 06/28/24 01:06 hydrochlorothiazide AdvReac Unknown Pt Unverified 06/28/24 01:06 believes medication was ineffective Review of Systems Narrative: Per HPI Exam Narrative Exam Narrative: Const: Elderly obese female in NAD. VS per triage. HEENT: NC/AT. Normal facial exam. OP is clear. Neck: Supple. Trachea midline. Lungs: Mild tachypnea. Diffuse scattered rhonchi. Cor: RRR without murmur. Good radial pulses. GI: Soft/ND/NT. Neuro: A+O x 3. Normal speech, mentation, gait. Cranial nerves II - XII grossly intact. No gross motor or sensory deficit. Ext: No C/C/E. Medical Decision Making Patient presenting to ED with sore throat, cough, shortness of breath with exertion. She received her RSV and COVID shot 2 weeks ago. She has not yet had a flu shot. She denies fever, headache, chest pain, body aches. She was somewhat tachypneic walking in and saturations on room air in the room were 88%. Old records show that patient does have history of restrictive lung disease. She has some scattered rhonchi. Oropharynx is clear. Turned off the oxygen to see what she does at rest. Fluvid, chest x-ray, laboratory studies obtained. EKG obtained by nursing on arrival is sinus rhythm with nonspecific ST changes, nothing acute. 02:15 - Patient's laboratory studies with normal white count and hemoglobin. Creatinine is a little high at baseline. Liver function normal. Fluvid swab negative. Chest x-ray per my review with elevated diaphragms bilaterally, no obvious airspace disease, no significant change from previous. Preliminary radiology read agrees. Patient does not desaturate with ambulation but becomes tachypneic with increased work of breathing. Saturations then decline once she sits and rests. Given inadequate views by x-ray with evidence of hypoxemia post ambulation will obtain CTA of chest. 03:15 - Patient's CTA of chest is negative for pulmonary embolus. She does however have groundglass opacities in all lung mcleod consistent with infection, less likely fluid though I have added a BNP on. Will cover with ceftriaxone and azithromycin. Would repeat Fluvid later today. Discussed with hospitalist for admission. Discussed with patient and . Medical Records Medical records reviewed: Yes I reviewed the patient's medical records. Medical records narrative: see [facility] Imaging Data Radiologic Study: Attestation: I personally reviewed and interpreted this imaging study as follows: Imaging: X-Ray My impression: see [facility] Lab Data Lab results reviewed: Yes I reviewed the patient's lab results. Lab results narrative: see [facility] ECG Data Attestation: I personally reviewed and interpreted this ECG (s) as follows: Prior ECG tracings: not available for review Interpretation: see EKG/[facility] PFSH All Active Problems (Updated 06/28/24 @ 03:26 by Shahzad Tompkins MD) Hypoxemia (Acute) Ground glass opacity present on imaging of lung (Acute) Carpal tunnel syndrome of left wrist (Acute 05/20/15) Abnormal EKG (Acute 11/26/15) Spastic bladder (Acute) Hypoxia (Acute 12/14/15) restrictive by PFT 2016 Cough (Acute 07/07/16) Ganglion cyst of foot (Acute 08/08/17) Increased body mass index (Acute) Knee pain (Acute 03/12/13) Pain of both shoulder joints (Acute 04/04/17) Right hip pain (Acute) Left hip pain (Acute) Piriformis syndrome (Acute) Sacroiliac dysfunction (Acute) Pre-diabetes (Acute) BMI 45.0-49.9, adult (Acute) Tricuspid valve insufficiency (Chronic 11/29/15) Sleep apnea (Chronic) CPAP not needed Restless legs syndrome (Chronic 03/03/14) Hiatal hernia (Chronic) 04/19/16 [facility]-6cm Urinary, incontinence, stress female (Chronic 07/02/13) Medical History Pulmonary hypertension (12/14/15) Restrictive lung disease (11/23/15) Hypothyroid Deep vein thrombosis (01/01/15) Hypertension GERD (gastroesophageal reflux disease) Hyperlipidemia Depression Anxiety Surgical History History of esophagogastroduodenoscopy History of laparoscopic cholecystectomy (12/02/15) Status post abdominal hysterectomy Status post breast biopsy Status post carpal tunnel release (06/02/15) Open Carpal Tunnel release 06/02/15; LEFT Jono Fundoplication (~09/2016) [facility]-LAPROSCOPIC Abdominal hysterectomy (~1982) Cholecystectomy (12/02/15) Bunionectomy 10/27/17; left; Dr. Brandon Biopsy of breast (~1988) RIGHT Family History Mother , age 82 No problems noted. Father , age 92 No problems noted. Brother No problems noted. Son No problems noted. Social History Smoking/Tobacco Use Status: Never Second Hand Exposure: No Smoking risk assessment performed?: Yes Alcohol Intake: current Alcohol Intake frequency: holidays/special occasions only Alcohol type: wine Drug use: Never Substance use type: does not use Caregiver/Support person: No Household members: spouse Housing: house Communication Needs: None Do you need help understanding health information?: Never Pets and animals: No Sexually active: No Do you think of yourself as: straight/heterosexual Current gender identity: female What is your relationship status?: How often do you talk on the phone with friends or family?: three or more times per week How often do you get together with friends or relatives?: three or more times per week How often do you attend muslim or shinto services?: 1-3 times per year Do you belong to any clubs or organized social groups?: no Panel score (0-1 are the most socially isolated patients): 2 What type of physical activity do you participate in: walking Duration: 15-30 minutes/day Frequency: 3-4 times per week Anita/Moravian: Oriental Orthodox Special anita needs: No Seatbelt use: always Helmet use: Yes Helmet use: always Drive intox or ride w/intox local intermodal truck driver: No
--- NOTE | 2024-06-28 01:15 | DI.RAD_ITS ---
Exam(s) XR CHEST 2V PA LATERAL EXAM: XR CHEST 2V PA LATERAL CLINICAL HISTORY: cough, SOB TECHNIQUE: 2D digital imaging was performed. Two views. COMPARISON: CR XR CHEST 2V PA LATERAL from 10/09/2019 FINDINGS: The right diaphragm is elevated, unchanged. HEART: Enlarged, unchanged. Aorta: Not dilated. PULMONARY VASCULATURE: Normal. MEDIASTINUM: Unremarkable. LUNGS: Clear. PLEURAL SPACE: No pleural effusion or pneumothorax. BONE:Unremarkable for age. SOFT TISSUES: Mild gaseous distension of bowel loops, nonspecific. IMPRESSION: No acute abnormality. DATA REPOSITORY: RADIATION DOSE DELIVERED:
[2024-06-28 01:43] LABS: Abs Immature Grans 0.03 10^3/uL (0.0-0.06); Absolute Basophil Count 0.04 10^3/uL (0.0-0.2); Absolute Eosinophil Count 0.12 10^3/uL (0.0-0.7); Absolute Lymphocyte Count 1.58 10^3/uL (1.2-3.4); Absolute Monocyte Count 0.88 10^3/uL (0.1-0.8); Absolute Neutrophil Count 6.55 10^3/uL (1.2-6.7); Basophils % 0.4 %; Eosinophils % 1.3 %; HCT 42.1 % (36.0-46.0); HGB 13.3 g/dL (11.2-15.7); Immature Grans % 0.3 %; Lymphocytes % 17.2 %; MCH 31.2 pg (27.0-33.0); MCHC 31.6 % (32.0-36.0); MCV 99 fL (80-95); MPV 9.2 fL (8.0-11.0); Monocytes % 9.6 %; Neutrophils % 71.2 %; Platelet Count 268 10^3/uL (130-400); RBC 4.26 10^6/uL (3.93-5.22); RDW-SD 47.6 fL
[2024-06-28 01:53] LABS: COVID-19 PCR Negative (Negative); Influenza A PCR Negative (Negative); Influenza B PCR Negative (Negative); RSV PCR Negative (Negative); Source Nasopharynx
[2024-06-28 01:57] LABS: ALT 28 U/L (14-59); AST 20 U/L (15-37); Albumin 3.5 g/dL (3.4-5.0); Alkaline Phosphatase 90 U/L (46-116); Anion Gap 3.8 mmol/L (3-11); BUN 14 mg/dL (7-18); Bilirubin, Total 0.35 mg/dL (0.2-1.0); CO2 31.2 mmol/L (21.0-32.0); CREATININE 1.3 mg/dL (0.55-1.02); Calcium 9.2 mg/dL (8.5-10.1); Chloride 100 mmol/L (98-107); Estimated GFR 42.35 (mL/min/1.73m2); Glucose 97 mg/dL (74-106); Potassium 4.1 mmol/L (3.5-5.1); Sodium 135 mmol/L (136-145); Total Protein 7.8 g/dL (6.4-8.2)
--- NOTE | 2024-06-28 02:00 | DI.CT_ITS ---
Exam(s) CT CHEST PE CTA EXAM: CT CHEST PE CTA CLINICAL HISTORY: GOLD w/ hypoxemia. TECHNIQUE: Imaging Protocol: Axial CT angiography was performed with multi-slice acquisition and mu lti-planar reconstructions as well as axial, coronal and sagittal MIP reconstructions. CONTRAST MATERIAL: Intravenous: Omnipaque 350 Contrast volume:100 ml COMPARISON: CT CT CHEST W from 09/03/2019 CR,XR XR CHEST 2V PA LATERAL from 06/28/2024 FINDINGS: Pulmonary Arteries: No evidence of filling defect to suggest pulmonary emboli. Tracheobronchial tree: No mucous plugging. Mediastinum and Radha: No dominant adenopathy or fluid collection. Pulmonary parenchyma: Bilateral upper and lower lobe ground-glass opacities. No consolidation or dom inant measurable mass. Pleura: No effusion or pneumothorax. Heart: The heart is mildly dilated. Mild coronary artery calcifications are seen. No pericardial e ffusion. Aorta: Thoracic aorta non-dilated. No dissection. Upper abdomen: No acute findings. Bones: Unremarkable for age. Tubes, Catheters, and Lines: None Soft tissues: Unremarkable. IMPRESSION: No evidence of pulmonary embolism. Bilateral ground-glass opacities. No evidence of consolidation. Moderate size hiatal hernia. Fluid in the distal esophagus could indicate reflux. RADIATION DOSE DELIVERED: 480.59mGy.cm Total DLP DATA REPOSITORY: All CT scans at this facility are submitted to the National Radiology Data Registry (NRDR) Dose Index Registry (DIR) with the [employer] (ACR). RADIATION OPTIMIZATION: All CT scans at this facility use at least one of these dose optimization te chniques: automated exposure control; mA and/or kV adjustment per patient size (includes targeted exa ms where dose is matched to clinical indication); or iterative reconstruction.
--- NOTE | 2024-06-28 02:04 | DI.VRAD_ITS ---
PROCEDURE INFORMATION: Exam: XR Chest Exam date and time: 06/28/2024 1:29 AM Age: 79 years old Clinical indication: Cough and shortness of breath; Additional info: Cough, SOB TECHNIQUE: Imaging protocol: Radiologic exam of the chest. Views: 2 views. COMPARISON: CR XR CHEST 2V PA LATERAL 10/09/2019 3:32 PM FINDINGS: Lungs: No focal consolidation seen. Pleural spaces: No large pleural effusion seen. Heart/Mediastinum: Enlarged cardiac silhouette, unchanged. Vasculature: Arterial calcifications. Diaphragm: Elevated right hemidiaphragm. Bones/joints: No acute abnormality. Gastrointestinal tract: Gaseous distension of bowel loops in the visualized abdomen. IMPRESSION: No significant interval change. Dictated and Authenticated by: Keeley Dunn MD. Ordering:JACKIE Pike MD
[2024-06-28] MEDS: Normal Saline - Diluent 50 ML VIAL IJ (02:38)
[2024-06-28] MEDS: Omnipaque 350 MG/ML 100 ML BTL IJ (02:38)
--- NOTE | 2024-06-28 03:10 | DI.VRAD_ITS ---
PROCEDURE INFORMATION: Exam: CTA Chest With Contrast Exam date and time: 06/28/2024 2:18 AM Age: 79 years old Clinical indication: Other: Elliott w/ hypoxemia TECHNIQUE: Imaging protocol: Computed tomographic angiography of the chest with contrast. Exam focused on the arteries. 3D rendering (Not supervised by radiologist): MIP and/or 3D reconstructed images were created by the technologist. Contrast material: OMNI 350; Contrast volume: 100 ml; Contrast route: INTRAVENOUS (IV); COMPARISON: No relevant prior studies are available for comparison. FINDINGS: Limitations: Motion artifact degrades image quality. Pulmonary arteries: No pulmonary embolus is appreciated. Aorta: Atherosclerotic changes in the aorta and its branches. Lungs: Multifocal ground-glass opacities in all lobes of both lungs. Pleural spaces: No pleural effusion. Heart: No pericardial effusion. Coronary arteries: Coronary artery calcifications. Esophagus: Gas and fluid distension of the esophagus. Lymph nodes: No acute abnormality seen. Diaphragm: Elevated right hemidiaphragm. Hiatal hernia. Gallbladder and biliary ducts: Cholecystectomy. Bones/joints: No acute pertinent abnormality seen. Soft tissues: No acute pertinent abnormality seen. IMPRESSION: 1. No pulmonary embolus is appreciated. 2. Multifocal ground-glass opacities in the lungs. Consider infection, edema. Follow-up as clinically warranted. 3. Hiatal hernia. Gas and fluid distension of the esophagus. Correlate clinically for reflux. 4. Additional findings as above. Dictated and Authenticated by: Keeley Dunn MD. Ordering:JACKIE Pike MD
[2024-06-28 03:37] LABS: NT-proBNP 76 pg/mL (<300)
[2024-06-28] MEDS: Azithromycin 250 MG TAB 500 MG PO (03:38)
[2024-06-28] MEDS: cefTRIAXone 1 GM/50 ML BAG IVPB (03:38)
--- NOTE | 2024-06-28 04:33 | W.PC.ACHO ---
Registration Status: Primary Language: Preferred Language: ED Information & Data Chief Complaint RespSymp 06/28/24 01:04 Chief Complaint RespSymp 06/28/24 01:00 Triage Note Started having a cough this 06/28/24 01:00 evening around dinner time, now has sore throat and cough continues. Pt denies SOB and chest pain, states biggest issue is cough. Pts O2 88% on RA on arrival. Denies COPD and asthma. Medical / Surgical History (Last Reviewed 06/28/24 @ 01:05 by Shahzad Tompkins MD) Pulmonary hypertension (12/14/15) Restrictive lung disease (11/23/15) Hypothyroid Deep vein thrombosis (01/01/15) Hypertension GERD (gastroesophageal reflux disease) Hyperlipidemia Depression Anxiety (Last Reviewed 06/28/24 @ 01:05 by Shahzad Tompkins MD) History of esophagogastroduodenoscopy History of laparoscopic cholecystectomy (12/02/15) Status post abdominal hysterectomy Status post breast biopsy Status post carpal tunnel release (06/02/15) Open Carpal Tunnel release Jono Fundoplication (~09/2016) Abdominal hysterectomy (~1982) Cholecystectomy (12/02/15) Bunionectomy Biopsy of breast (~1988) Most Recent Vital Signs Temperature 36.4 C L 06/28/24 01:00 Temperature Source Oral 06/28/24 01:00 Pulse 57 L 06/28/24 04:16 Pulse 61 06/28/24 04:20 Respiratory Rate 16 06/28/24 04:20 Respiratory Effort Short of Breath 06/28/24 01:04 Respiratory Depth Shallow 06/28/24 01:04 Blood Pressure 170/71 H 06/28/24 04:16 Blood Pressure Mean 103 06/28/24 04:16 Blood Pressure Position Sitting 06/28/24 01:00 Pulse Oximetry 97 06/28/24 04:20 Oxygen Delivery Method Nasal Cannula 06/28/24 02:42 Oxygen Flow Rate 2 06/28/24 02:42 Pain Level 0 06/28/24 01:00 Allergies gemfibrozil Adverse Reaction (Mild, Unverified 06/28/24 01:06) Pt believes medicatation was ineffective lisinopril Adverse Reaction (Mild, Unverified 06/28/24 01:06) COUGH hydrochlorothiazide Adverse Reaction (Unknown, Unverified 06/28/24 01:06) Pt believes medication was ineffective Precautions Isolation PUI 06/28/24 01:04 Active Medications Generic Name Dose Route Start Last Admin Trade Name Riley PRN Reason Stop Dose Admin Iohexol 100 ml 06/28/24 02:45 06/28/24 02:38 Omnipaque 350 Mg/Ml 100 Ml Btl IJ 07/28/24 23:59 100 ml DIRECTED ISIDRO Administration Sodium Chloride 50 ml 06/28/24 02:45 06/28/24 02:38 Normal Saline - Diluent 50 Ml Vial IJ 50 ml .FOR DI USE ISIDRO Administration IV IV Catheter Type [Right Peripheral IV Antecubital] IV Catheter Gauge [Right 18 Antecubital] Diagnostics 06/28/24 06/28/24 Range/Units 01:35 01:12 WBC 9.20 (4.4-10.8) 10^3/uL RBC 4.26 (3.93-5.22) 10^6/uL Hgb 13.3 (11.2-15.7) g/dL Hct 42.1 (36.0-46.0) % MCV 99 H (80-95) fL MCH 31.2 (27.0-33.0) pg MCHC 31.6 L (32.0-36.0) % RDW 13.0 (11.7-14.6) % Plt Count 268 (130-400) 10^3/uL MPV 9.2 (8.0-11.0) fL Immature Gran % 0.3 % Neutrophils % 71.2 % Lymphocytes % 17.2 % Monocytes % 9.6 % Eosinophils % 1.3 % Basophils % 0.4 % Nucleated RBC % 0.0 (0.0-0.3) % Absolute Neutrophils 6.55 (1.2-6.7) 10^3/uL Absolute Lymphocytes 1.58 (1.2-3.4) 10^3/uL Absolute Monocytes 0.88 H (0.1-0.8) 10^3/uL Absolute Eosinophils 0.12 (0.0-0.7) 10^3/uL Absolute Basophils 0.04 (0.0-0.2) 10^3/uL Sodium 135 L (136-145) mmol/L Potassium 4.1 (3.5-5.1) mmol/L Chloride 100 (98-107) mmol/L Carbon Dioxide 31.2 (21.0-32.0) mmol/L Anion Gap 3.8 (3-11) mmol/L BUN 14 (7-18) mg/dL Creatinine 1.3 H (0.55-1.02) mg/dL Est GFR (CKD-EPI 2020) 42.35 (mL/min/1.73m2) Glucose 97 (74-106) mg/dL Calcium 9.2 (8.5-10.1) mg/dL Total Bilirubin 0.35 (0.2-1.0) mg/dL AST 20 (15-37) U/L ALT 28 (14-59) U/L Alkaline Phosphatase 90 (46-116) U/L NT-Pro-B Natriuret Pep 76 (<300) pg/mL Total Protein 7.8 (6.4-8.2) g/dL Albumin 3.5 (3.4-5.0) g/dL COVID-19 Source Nasopharynx SARS-CoV-2 (PCR) Negative (Negative) Influenza Type A (PCR) Negative (Negative) Influenza Type B (PCR) Negative (Negative) RSV (PCR) Negative (Negative) Add-On Test Request Pending Intake and Output - 24 Hour Total 06/28/24 00:57 thru 06/28/24 04:09 Intake Total 60 Balance 60 Weight 102.058 kg Intake: IV 60 Falls Risk Assessment History of Falls No History 06/28/24 01:04 Contributing Factors No Factors 06/28/24 01:04 Ambulatory Aids Independent 06/28/24 01:04 Tubes/Lines None 06/28/24 01:04 Gait Evaluation No gait disturbance 06/28/24 01:04 Cognition No cognitive impairment 06/28/24 01:04 Fall Total Score 0 06/28/24 01:04 Level of Risk Standard/Low Risk 06/28/24 01:04 Problems (Last Reviewed 06/28/24 @ 01:05 by Shahzad Tompkins MD) Hypoxemia (Acute) Ground glass opacity present on imaging of lung (Acute) v v v v v v v v v Sending and/or Receiving Nurses: Please use comment section below to note any information pertinent to the patient hand-off not included above. Information / Comments: Report received from: Terrell HEARD at [id number]
--- NOTE | 2024-06-28 05:50 | W.PM.HP.N ---
Date of service: 06/28/24 Time of Service: 05:50 Assessment and Plan Assessment and plan (1) Acute hypoxic respiratory failure: Start date: 06/28/24 Status: Acute Assessment and plan: This is a 79-year-old lady who has chronic bilaterally elevated diaphragm after a gallbladder surgery years ago briefly on oxygen at that time but not on oxygen recently presenting with hypoxemia secondary to acute respiratory infection with sore throat. Her viral screening was negative for RSV/COVID/influenza but her symptoms were less than 12 hours onset when tested with this to be repeated at 12 hours from the first testing. She will continue on respiratory care and oxygen supplementation along with treatment for possible reacquired pneumonia adjusted to her home med being on SSRIs. She is a full code. (2) Pneumonia: Start date: 06/28/24 Status: Acute Assessment and plan: Continue Rocephin but changed Zithromax to doxycycline because the patient's use of SSRIs. Recheck viral screening and if she is COVID-positive, she would be a candidate for dexamethasone and remdesivir. Qualifiers: Pneumonia type: due to unspecified organism Laterality: bilateral Lung location: unspecified part of lung Qualified Code(s): J18.9 - Pneumonia, unspecified organism (3) Hypothyroid: Assessment and plan: Check TSH and continue outpatient supplementation the same. Qualifiers: Hypothyroidism type: acquired Qualified Code(s): E03.9 - Hypothyroidism, unspecified (4) Pulmonary hypertension: Assessment and plan: Consider repeating echocardiogram but this is not necessary immediately because of patient's BNP being normal. Check VBG. (5) Restrictive lung disease: Assessment and plan: Follow-up VBG and continue respiratory care with nebulizers. Patient will not be started on steroids unless worsening symptoms. (6) Hypertension: Assessment and plan: Continue outpatient medical therapy and monitor while inpatient. Qualifiers: Hypertension type: primary hypertension Qualified Code(s): I10 - Essential (primary) hypertension (7) Hyperlipidemia: Assessment and plan: Continue statin therapy. Qualifiers: Hyperlipidemia type: mixed hyperlipidemia Qualified Code(s): E78.2 - Mixed hyperlipidemia (8) Depression: Assessment and plan: Continue outpatient medical therapy. Qualifiers: Depression Type: other depression Qualified Code(s): F32.89 - Other specified depressive episodes History of Present Illness History of Present Illness Chief Complaint: Sore throat, cough and shortness of breath. Narrative: This is a 79-year-old female patient who has a history of restrictive lung disease with bilaterally elevated diaphragms which occurred postoperatively after a gallbladder removal years ago with oxygen needs briefly after that episode and pulmonary hypertension who received a RSV/COVID vaccine 2 weeks prior to presentation. She began to have tachypnea with walking at home with her saturations were at 88% the patient chronically not on oxygen. She developed a cough with sore throat and hoarseness which began the afternoon of presentation and progressed with the above oxygen needs with minimal dyspnea upon exertion. She was due to get a flu vaccine this coming weekend. She has had no fever or chest pain and no abdominal pain. She did have bouts of emesis when coughing/gagging with sore throat. She is not nauseated. She presented to the ED and did require oxygen supplementation with a pulse oximeter dropping especially after exertion with chest x-ray being unrevealing but CTA of the chest revealing no PE with a history of previous thromboemboli, but bilateral groundglass opacities consistent with pneumonia most likely viral etiology though the patient was negative for RSV/influenza and COVID with screening. Her symptoms had just began prior to presentation and these will be repeated within the next 12 hours. She was admitted for her acute oxygen needs and treatment of bilateral pneumonia though it may appear viral. She was given Rocephin and Zithromax which will be continued to cover community-acquired pneumonia though the rectal be changed to doxycycline because of patient's long-term use of SSRI. O2 supplementation as needed and respiratory care as needed. As stated, we will repeat viral screening later the day of admission. She is a full code. Review of Systems Narrative: 13 point review of systems otherwise unrevealing or stable. [facility] All Active Problems (Updated 06/28/24 @ 05:58 by Christopher De Los Santos) Pneumonia (Acute) Acute hypoxic respiratory failure (Acute) Hypoxemia (Acute) Ground glass opacity present on imaging of lung (Acute) Carpal tunnel syndrome of left wrist (Acute 05/20/15) Abnormal EKG (Acute 11/26/15) Spastic bladder (Acute) Hypoxia (Acute 12/14/15) restrictive by PFT 2015 Cough (Acute 07/07/16) Ganglion cyst of foot (Acute 08/08/17) Increased body mass index (Acute) Knee pain (Acute 03/12/13) Pain of both shoulder joints (Acute 04/04/17) Right hip pain (Acute) Left hip pain (Acute) Piriformis syndrome (Acute) Sacroiliac dysfunction (Acute) Pre-diabetes (Acute) BMI 45.0-49.9, adult (Acute) Tricuspid valve insufficiency (Chronic 11/29/15) Sleep apnea (Chronic) CPAP not needed Restless legs syndrome (Chronic 03/03/14) Hiatal hernia (Chronic) 04/19/16 [facility]-6cm Urinary, incontinence, stress female (Chronic 07/02/13) Medical History Pulmonary hypertension (12/14/15) Restrictive lung disease (11/23/15) Hypothyroid Deep vein thrombosis (01/01/15) Hypertension GERD (gastroesophageal reflux disease) Hyperlipidemia Depression Anxiety Surgical History History of esophagogastroduodenoscopy History of laparoscopic cholecystectomy (12/02/15) Status post abdominal hysterectomy Status post breast biopsy Status post carpal tunnel release (06/02/15) Open Carpal Tunnel release 06/02/15; LEFT Jono Fundoplication (~09/2016) [facility]-LAPROSCOPIC Abdominal hysterectomy (~1982) Cholecystectomy (12/02/15) Bunionectomy 10/27/17; left; Dr. Brandon Biopsy of breast (~1988) RIGHT Family History Mother , age 82 No problems noted. Father , age 92 No problems noted. Brother No problems noted. Son No problems noted. Social History Smoking/Tobacco Use Status: Never Second Hand Exposure: No Smoking risk assessment performed?: Yes Alcohol Intake: current Alcohol Intake frequency: holidays/special occasions only Alcohol type: wine Drug use: Never Substance use type: does not use Caregiver/Support person: No Household members: spouse Housing: house Communication Needs: None Do you need help understanding health information?: Never Pets and animals: No Sexually active: No Do you think of yourself as: straight/heterosexual Current gender identity: female What is your relationship status?: How often do you talk on the phone with friends or family?: three or more times per week How often do you get together with friends or relatives?: three or more times per week How often do you attend gnosticism or taoist services?: 1-3 times per year Do you belong to any clubs or organized social groups?: no Panel score (0-1 are the most socially isolated patients): 2 What type of physical activity do you participate in: walking Duration: 15-30 minutes/day Frequency: 3-4 times per week Anita/Druze: Jewish Special anita needs: No Seatbelt use: always Helmet use: Yes Helmet use: always Drive intox or ride w/intox transit driver: No Meds Allergies and Home Medications Allergies Allergy/AdvReac Type Severity Reaction Status Date / Time gemfibrozil AdvReac Mild Pt Unverified 06/28/24 01:06 believes medicatation was ineffective lisinopril AdvReac Mild COUGH Unverified 06/28/24 01:06 hydrochlorothiazide AdvReac Unknown Pt Unverified 06/28/24 01:06 believes medication was ineffective Home Medications ?Medication ?Instructions ?Recorded ?Confirmed ?Type acetaminophen 325 mg tablet 650 mg PO Q4H PRN PRN 10/23/17 06/28/24 History (Tylenol) fluticasone propionate 50 1 spray NS BID PRN nasal 08/26/19 06/28/24 Rx mcg/actuation nasal congestion ##1 spray,suspension albuterol sulfate 90 mcg/actuation 1 - 2 puff inhalation Q4H PRN ##1 02/02/21 06/28/24 Rx aerosol inhaler (ProAir HFA) lorazepam 0.5 mg tablet 0.5 mg PO DAILY PRN anxiety #30 01/07/22 06/28/24 Rx tabs nystatin 100,000 unit/gram topical 1 applic topical QID #60 grams 05/26/23 06/28/24 Rx powder oxybutynin chloride 5 mg tablet 5 mg PO BID #180 tab-caps 10/16/23 06/28/24 Rx escitalopram oxalate 20 mg tablet 20 mg PO DAILY #90 tab-caps 01/18/24 06/28/24 Rx losartan 100 mg tablet 100 mg PO DAILY #90 tabs 01/29/24 06/28/24 Rx metoprolol succinate 25 mg 25 mg PO DAILY #90 tabs 01/29/24 06/28/24 Rx tablet,extended release 24 hr amitriptyline 100 mg tablet 100 mg PO HS #90 tabs 02/06/24 06/28/24 Rx semaglutide (weight loss) 0.5 0.5 mg (0.5 mL) subcut QWEEK #8 mL 05/03/24 06/28/24 Rx mg/0.5 mL subcutaneous pen injector atorvastatin 40 mg tablet 40 mg PO DAILY #90 tabs 05/21/24 06/28/24 Rx levothyroxine 50 mcg tablet 50 mcg PO DAILY #90 tabs 05/21/24 06/28/24 Rx Exam Narrative Exam Narrative: General: Patient appears appropriate for age, moderately to morbidly obese lying in bed with a dry cough but in no acute distress. He speaks in full sentences. She is alert and oriented x 3. HEENT: Normocephalic, eyes with pupils equal and reactive to light with extraocular movement intact. Oropharynx with moist Koza and fair dentition. Neck: Supple without JVD. Back: Kyphotic without CVA tenderness. Lungs: Bronchovesicular breath sounds diffusely with decreased aeration of both bases and coarse crackles intermittently throughout all lung mcleod but no focalizing rales or rhonchi. Slight increased expiratory phase with expiratory wheeze and upper airway noise. Breast: Exam deferred. Heart: Regular rate and rhythm with no murmurs or gallops appreciated. Abdomen: Obese contour, soft nontender to palpation with no palpable hepatosplenomegaly. There is a mild pannus with dry skin in the intertriginous areas. Genitalia/rectal: Exam deferred. Extremities: Without clubbing, cyanosis or pitting edema with nonpitting edema both lower extremities. Good capillary refill. Skin: Normal color, warm and dry. Neuro: Cranial nerves II through XII gross intact, no focalizing motor deficits and no tremor. Psych: Flattened affect with mildly depressed mood. No abnormal thought processes. Remote and recent memory intact. Results Imaging Imaging Studies: Exam: CTA Chest With Contrast Exam date and time: 06/28/2024 2:18 AM Age: 79 years old Clinical indication: Other: Elliott w/ hypoxemia TECHNIQUE: Imaging protocol: Computed tomographic angiography of the chest with contrast. Exam focused on the arteries. 3D rendering (Not supervised by radiologist): MIP and/or 3D reconstructed images were created by the technologist. Contrast material: OMNI 350; Contrast volume: 100 ml; Contrast route: INTRAVENOUS (IV); COMPARISON: No relevant prior studies are available for comparison. FINDINGS: Limitations: Motion artifact degrades image quality. Pulmonary arteries: No pulmonary embolus is appreciated. Aorta: Atherosclerotic changes in the aorta and its branches. Lungs: Multifocal ground-glass opacities in all lobes of both lungs. Pleural spaces: No pleural effusion. Heart: No pericardial effusion. Coronary arteries: Coronary artery calcifications. Esophagus: Gas and fluid distension of the esophagus. Lymph nodes: No acute abnormality seen. Diaphragm: Elevated right hemidiaphragm. Hiatal hernia. Gallbladder and biliary ducts: Cholecystectomy. Bones/joints: No acute pertinent abnormality seen. Soft tissues: No acute pertinent abnormality seen. IMPRESSION: 1. No pulmonary embolus is appreciated. 2. Multifocal ground-glass opacities in the lungs. Consider infection, edema. Follow-up as clinically warranted. 3. Hiatal hernia. Gas and fluid distension of the esophagus. Correlate clinically for reflux. 4. Additional findings as above. Exam: XR Chest Exam date and time: 06/28/2024 1:29 AM Age: 79 years old Clinical indication: Cough and shortness of breath; Additional info: Cough, SOB TECHNIQUE: Imaging protocol: Radiologic exam of the chest. Views: 2 views. COMPARISON: CR XR CHEST 2V PA LATERAL 10/09/2019 3:32 PM FINDINGS: Lungs: No focal consolidation seen. Pleural spaces: No large pleural effusion seen. Heart/Mediastinum: Enlarged cardiac silhouette, unchanged. Vasculature: Arterial calcifications. Diaphragm: Elevated right hemidiaphragm. Bones/joints: No acute abnormality. Gastrointestinal tract: Gaseous distension of bowel loops in the visualized abdomen. IMPRESSION: No significant interval change. Labs 06/28/24 01:35 06/28/24 01:35 Labs: Laboratory Results - last 24 hr 06/28/24 06/28/24 01:12 01:35 WBC 9.20 RBC 4.26 Hgb 13.3 Hct 42.1 MCV 99 H MCH 31.2 MCHC 31.6 L RDW 13.0 Plt Count 268 MPV 9.2 Immature Gran % 0.3 Neutrophils % 71.2 Lymphocytes % 17.2 Monocytes % 9.6 Eosinophils % 1.3 Basophils % 0.4 Nucleated RBC % 0.0 Absolute Neutrophils 6.55 Absolute Lymphocytes 1.58 Absolute Monocytes 0.88 H Absolute Eosinophils 0.12 Absolute Basophils 0.04 Sodium 135 L Potassium 4.1 Chloride 100 Carbon Dioxide 31.2 Anion Gap 3.8 BUN 14 Creatinine 1.3 H Est GFR (CKD-EPI 2020) 42.35 Glucose 97 Calcium 9.2 Total Bilirubin 0.35 AST 20 ALT 28 Alkaline Phosphatase 90 NT-Pro-B Natriuret Pep 76 Total Protein 7.8 Albumin 3.5 COVID-19 Source Nasopharynx SARS-CoV-2 (PCR) Negative Influenza Type A (PCR) Negative Influenza Type B (PCR) Negative RSV (PCR) Negative Last Vital Signs Temp 36.5 C 06/28/24 05:11 Pulse 59 L 06/28/24 05:11 Resp 20 06/28/24 05:11 BP 130/63 06/28/24 05:11 Pulse Ox 98 06/28/24 05:11 Time Spent Time spent with Patient: >75 minutes Time was spent: preparing to see the patient(eg.review tests), obtaining and/or reviewing separately otained hiistory, ordering medications,tests, procedures, indepentently interpreting results, counseling the patient and care coordination
[2024-06-28] MEDS: DOXYCYCLINE 100 MG in Normal Saline 100 ML IVPB ×2 (06:39→17:49)
[2024-06-28] MEDS: Levothyroxine 50 MCG TAB PO (06:39)
[2024-06-28 07:45] LABS: BE (Venous) 6 mmol/L (-2-3); HCO3 (Venous) 32 mmol/L (23-28); O2 Sat (Venous) 36 %; TCO2 (Venous) 29 mmol/L (24-29); pCO2 (Venous) 60 mmHg (41-51); pH (Venous) 7.33 (7.31-7.41); pO2 (Venous) 22 mmHg
[2024-06-28] MEDS: Albuterol/Ipratropium 3 ML UPD VIAL UPD ×2 (08:07→19:52)
[2024-06-28] MEDS: Normal Saline Flush 10 ML SYR IVP ×4 (09:00→20:23)
[2024-06-28 09:11] LABS: TSH (W/Ref FT4) 4.25 uIU/mL (0.36-3.74)
--- NOTE | 2024-06-28 09:22 | NUR.NOTE ---
Patient expectorated coffee ground emesis this am. Provider notified. Holding Lovenox, morning breakfast and medications until a further plan is made.
[2024-06-28 09:38] LABS: FREE T4 0.81 ng/dL (0.76-1.46)
[2024-06-28 10:57] LABS: Lab Add On Test COMPLETED
--- NOTE | 2024-06-28 12:52 | PHA.REVIEW2 ---
Pharmacy Admission Review Admission Clinical Review Admission Pharmacy Review: Pneumonia (Acute) Acute hypoxic respiratory failure (Acute) Hypoxemia (Acute) Ground glass opacity present on imaging of lung (Acute) gemfibrozil Adverse Reaction (Mild, Unverified 06/28/24 01:06) Pt believes medicatation was ineffective lisinopril Adverse Reaction (Mild, Unverified 06/28/24 01:06) COUGH hydrochlorothiazide Adverse Reaction (Unknown, Unverified 06/28/24 01:06) Pt believes medication was ineffective Resuscitation Status Full Code Height 5 ft 1 in Weight 102.058 kg Pharmacy Admission Review Renal Dosing Renal Dosing: BUN 14 mg/dL (7-18) 06/28/24 01:35 Creatinine 1.3 mg/dL (0.55-1.02) H 06/28/24 01:35 Medications needing adjustments: Reviewed (CrCl 39.76 mL/min) List of meds needing interventions: Current medications are okay Anticoagulation Anticoagulation: Hgb 13.3 g/dL (11.2-15.7) 06/28/24 01:35 Hct 42.1 % (36.0-46.0) 06/28/24 01:35 Plt Count 268 10^3/uL (130-400) 06/28/24 01:35 Creatinine 1.3 mg/dL (0.55-1.02) H 06/28/24 01:35 DVT Prophylaxis: Intervened (Changed order from daily to BID due to BMI > 40, during morning meeting nursing reported blood in patients vomit this morning. Lovenox is currently being held, order is still active at the moment. Will verify that with provider) Medications: Enoxaparin (40mg BID) Relevant Labs Relevant Labs: Sodium 135 mmol/L (136-145) L 06/28/24 01:35 Potassium 4.1 mmol/L (3.5-5.1) 06/28/24 01:35 Chloride 100 mmol/L (98-107) 06/28/24 01:35 Electrolytes, C-Reactive P, ESR: Reviewed Cardiac Review Cardiac Review: NT-Pro-B Natriuret Pep 76 pg/mL (<300) 06/28/24 01:35 Blood Pressure 116/55 0846 Blood Pressure 130/63 0511 Blood Pressure 170/71 0416 Blood Pressure 171/79 0401 Blood Pressure 186/78 0345 Blood Pressure 169/92 0330 Blood Pressure 162/82 0328 BP, HR, EF%: Reviewed (HR WNL) List meds needing interventions: Has order for losartan 100mg daily and metoprolol XL 25mg daily QTc Review QTc: Reviewed (437 from 06/28/24) IV to PO Switch IV Medications: Reviewed (ceftriaxone and doxycycline) Home Meds Home Med List reviewed: Reviewed Relevent Home Meds Not ordered & why?: Rashad (weekly) Current Meds Current Medication Order Review: Intervened Comments: Changed DuoNeb order to even hour per pharmacy protocol Pharmacy Antibiotic Review Relevant Labs: WBC 9.20 10^3/uL (4.4-10.8) 06/28/24 01:35 Temperature 37.4 C Temperature 36.5 C Temperature 36.4 C Pharmacy Antibiotic Activity: Reviewed, no change Comments: Patient is on day 1 of ceftriaxone and doxycycline for pneumonia. Patient is afebrile, WBC WNL and currently no cultures pending.
--- NOTE | 2024-06-28 12:59 | PGE_ITS ---
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 Viral screening was negative for RSV/COVID/influenza w her symptoms < 12 hours onset Repeat Fluvid RSV Oxygen supplementation for sat >92% Possible reacquired pneumonia Tx -Ceftriaxone and Doxycycline -Zithromax changed to doxycycline because the patient's use of SSRIs Testing for legionella, strept pneumoniae and mycoplasma pneumoniae (2) Pneumonia: Start date: 06/28/24 Status: Acute Assessment and plan: As above Qualifiers: Pneumonia type: due to unspecified organism Laterality: bilateral Lung location: unspecified part of lung Qualified Code(s): J18.9 - Pneumonia, unspecified organism (3) Hypothyroid: Assessment and plan: TSH 4.25 but Ta 0.81 Continue home dose levothyroxine Qualifiers: Hypothyroidism type: acquired Qualified Code(s): E03.9 - Hypothyroidism, unspecified (4) Pulmonary hypertension: Assessment and plan: Echocardiogram Previous on in 2019 w LVEF of 55-60% but worsening diastolic dysfunction but this is not necessary immediately because of patient's lasix 20 mg IVP X1 BNP was normal. VB.33, 60, 32- most likely compensated; no Hx of COPD FEV1/FVC 88 % on 2017 might have a history of pulmonary fibrosis will clarify with patient. (5) Restrictive lung disease: Assessment and plan: As above continue respiratory care with nebulizers. not be started on steroids unless worsening symptoms. (6) Hypertension: Assessment and plan: Continue home med regimen Qualifiers: Hypertension type: primary hypertension Qualified Code(s): I10 - Essential (primary) hypertension (7) Hyperlipidemia: Assessment and plan: Continue home statin therapy. Qualifiers: Hyperlipidemia type: mixed hyperlipidemia Qualified Code(s): E78.2 - Mixed hyperlipidemia (8) Depression: Assessment and plan: Continue outpatient medical therapy, on SSRI's Qualifiers: Depression Type: other depression Qualified Code(s): F32.89 - Other specified depressive episodes (9) GIB (gastrointestinal bleeding): Status: Chronic Assessment and plan: Coffee ground emesis this AM- heme tested positive -NPO -PPI -Sx consult with Dr. Gupta nausea- now on compazine PRN Discussed with Dr Wells. Subjective Subjective Patient reports: feels better, voiding w/o difficulty, flatus, no bowel movement, nausea, vomiting (hematemesis) and afebrile; denies tolerating liquids well, tolerating a regular diet or shortness of breath Exam Narrative Exam Narrative: Constitutional The patientin bed comfortable ,without acute distress Eyes: Well aligned Neuro:alert and oriented X4. No neurological focal deficit Chest:Chest is symmetrical and normal appearance Resp: Crackles bilaterally her to upper and lower lung mcleod Cardio:EKG in the ED showed SR HR 60- Tele ordered reading not available at this time; regular rhythm, S1, S2, no murmur, bilateral radial and pedal pulses are positive GI: Abdomen is not distended, soft and non tender, bowel sounds are present : Negative Costovertebral angle tenderness Back/spine/Pelvis: No back tenderness, normal alignment Integumentary: No skin lesions or rash Extremities: strength 5/5 to bilateral lower and upper extremities Psych: RASS 0, congruent mood and normal affect. Objective Last Vital Signs Temp 37.4 C 06/28/24 08:46 Pulse 66 06/28/24 08:46 Resp 24 06/28/24 08:46 BP 116/55 L 06/28/24 08:46 Pulse Ox 93 06/28/24 08:46 Laboratory Results - last 24 hr 06/28/24 06/28/24 06/28/24 01:12 01:35 07:37 WBC 9.20 RBC 4.26 Hgb 13.3 Hct 42.1 MCV 99 H MCH 31.2 MCHC 31.6 L RDW 13.0 Plt Count 268 MPV 9.2 Immature Gran % 0.3 Neutrophils % 71.2 Lymphocytes % 17.2 Monocytes % 9.6 Eosinophils % 1.3 Basophils % 0.4 Nucleated RBC % 0.0 Absolute Neutrophils 6.55 Absolute Lymphocytes 1.58 Absolute Monocytes 0.88 H Absolute Eosinophils 0.12 Absolute Basophils 0.04 VBG pH 7.33 VBG pCO2 60 H VBG pO2 22 VBG HCO3 32 H VBG Total CO2 29 VBG O2 Saturation 36 VBG Base Excess 6 H Sodium 135 L Potassium 4.1 Chloride 100 Carbon Dioxide 31.2 Anion Gap 3.8 BUN 14 Creatinine 1.3 H Est GFR (CKD-EPI 2020) 42.35 Glucose 97 Calcium 9.2 Total Bilirubin 0.35 AST 20 ALT 28 Alkaline Phosphatase 90 NT-Pro-B Natriuret Pep 76 Total Protein 7.8 Albumin 3.5 TSH 4.25 H Free T4 0.81 COVID-19 Source Nasopharynx SARS-CoV-2 (PCR) Negative Influenza Type A (PCR) Negative Influenza Type B (PCR) Negative RSV (PCR) Negative Add-On Test Request COMPLETED Time Spent with Patient Time Spent with Patient: >50 minutes Time was spent: preparing to see the patient(eg.review tests), obtaining and/or reviewing separately otained hiistory, ordering medications,tests, procedures, referring, communicating with other health workforce investment act career manager, indepentently interpreting results, counseling the patient and care coordination
--- NOTE | 2024-06-28 13:30 | DI.US_ITS ---
APPROVED REPORT EXAM: Comprehensive 2D, Doppler, and color-flow Echocardiogram Patient Location: In-Patient Room/Bed: [address] Operator: Caleb Mendoza RDCS (AE) Indications: Ground glass opacity, previous diastolic dysfunction Other Information Study Quality: Technically Limited. Technically limited study due to body habitus. Conclusion Normal left ventricular wall thickness and chamber size and fraction is 55%. Wall motion is normal Right ventricle is not well-visualized but overall appears grossly normal in size and function Both atria are normal in size Mitral annular calcification There is no additional structural or hemodynamically significant valvular disease Ascending aorta measures 3.8 cm Wall motion Left Ventricle The left ventricle is normal size. The left ventricular systolic function is normal. The left ventric ular ejection fraction is within the normal range. There is normal left ventricular wall thickness. T here is normal LV segmental wall motion. There is no ventricular septal defect visualized. LVEF is 55 %. Right Ventricle Right ventricle is not well visualized. Right ventricular systolic function could not be assessed. Atria The left atrium size is normal. The right atrium size is normal. The interatrial septum is intact wit h no evidence for an atrial septal defect. Aortic Valve The aortic valve is normal in structure. Aortic valve is trileaflet. There is no aortic valvular sten osis. No aortic regurgitation is present. Mitral Valve Moderate mitral annular calcification. No evidence of mitral valve stenosis. There is no mitral valve regurgitation noted. Tricuspid Valve The tricuspid valve is normal in structure. There is no tricuspid valve stenosis. Trace tricuspid reg urgitation. Pulmonic Valve The pulmonary valve is normal in structure. There is no pulmonic valvular stenosis. Trivial pulmonic regurgitation. Great Vessels The aortic root is normal in size. The ascending aorta is mildly dilated. Aortic arch is normal in ca liber. IVC is normal in size and collapses >50% with inspiration. Pericardium There is no pericardial effusion. 2D Dimensions IVSD d PLAX 0.98 cm F: 0.6-1.0 Ao Root d 2.76 cm F: 2.7 - 3.3 LVPW d PLAX 1.02 cm F: 0.6 - 1.0 Ao Asc Diam d 3.81 cm F: 2.3 - 3.1 LVID d PLAX 3.80 cm F: 3.8 - 5.2 LVDs 2.76 cm F: 2.2 - 3.5 LV EF Teichholz 54.1 % FS 27.47 % LV EDV (Teich) 61.9 mL LV ESV (Teich) 28.4 mL Stroke Vol Index (Teich) 16.84 M-Mode TAPSE 2.61 cm (M/F) >1.7 Auto EF LV EDV A4C 92.1 mL LV EDV A2C 53.5 mL LV EDV BP LV ESV A4C 42.6 mL LV ESV A2C 22.9 mL LV ESV BP LVEF(%) A4C 53.7 % LVEF(%) A2C 57.3 % LVEF(%) BP LV SV A4C 49.4 ml LV SV A2C 30.6 ml LV SV BP LV CO A4C 3.9 L/min LV CO A2C 2.5 L/min LV CO BP HR A4C 79.12 BPM HR A2C 80.54 BPM LV EDV Index (BP) LA Volume LA Length A4C 4.8 cm LA Length A2C 4.9 cm LA Area A4C s 13.51 cm2 LA Area A2C s 14.59 cm2 LA Vol A4C A-L 32.13 mL LA Vol A2C A-L 37.12 mL LA Vol Biplane A-L 34.7 mL LA Vol/BSA A4C A-L LA Vol/BSA A2C A-L LA Vol/BSA BP A-L 17.4 mL/m2 LA Vol A4C MOD 30.3 mL LA Vol A2C MOD 34.7 mL LA Vol BP MOD 32.4 mL RA Volume RA Area A4C 8.9 cm2 RA ESV A4C (A-L) 17.7mL RA Vol/BSA A4C A-L RA Length A4C 3.8 cm RA ESV A4C (MOD) 16.7mL LV Diastology MV E' medial 0.043 (>0.07 m/s) MV E Vmax 0.68 (0.4-1.3 m/s) MV E/E' MED 15.75 (<14) MV A Vmax 1.45 (0.4-1.3 m/s) MV E' lateral 0.065 (>0.1 m/s) E/A Ratio 0.5 MV E/E' LAT 10.53 (<14) MV E' Average 0.054 m/s MV E/E'(average) 12.62 Aortic Valve AoV Vmax 1.43 m/s LVOT Vmax 1.03 m/s AoV Peak Grad 8.2 mmHg LVOT Peak Grad 4.2 mmHg AoV Area (Vmax) 2.30 cm2 LVOT VTI 0.258 m AoV VTI 0.328 m LVOT Mean Grad 2.7 mmHg AoV Mean Aristeo. 1.04 m/s LVOT SV 82.59 mL AoV Mean Grad 4.7 mmHg LVOT Diam s 2.00 cm AoV Area (VTI) 2.52 cm2 AV Regurg Peak Gr. 8.20 mmHg Velocity Ratio 0.72 Mitral Valve MV DT 230 (160-240 msec) MV Vmax TIPS 1.36 m/s MV Mean Grad 2.3 (<2mmHg) MV VTI 0.337 m Pulmonary Valve PV Vmax 1.07 (0.5-1.5 m/s) RVOT Vmax 0.74 m/s PV Peak Grad 4.5 mmHg RVOT Peak Gr. 2.2 mmHg PV Mean Aristeo 0.67 m/s RVOT VTI 0.133 m PV Mean Grad 2.1 mmHg RVOT Mean Gr. 1.1 mmHg Tricuspid Valve TR Vmax 1.23 m/s TR Peak Grad 6.0 mmHg
--- NOTE | 2024-06-28 14:06 | PDOC.CMIN ---
Date of service: 06/28/24 Time of Service: 14:06 Care Management Initial Assmt Initial Assessment Reason for Hospitalization: Acute respiratory failure with hypoxemia Functional Status/Living Situation Patient Presentation: Wen was sitting up in bed visiting with her and sister in law when CM met with her. She stated that she is feeling good, and is hoping to be discharged today, but was still waiting to hear from the provider if she needs an EGD prior to discharge. She stated that she lives with her in [place], and is very independent at baseline. 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 Her stated that she is too busy; he reported that he is retired, and would like her to slow down as well. They were very pleasant and engaged well in conversation. CM will continue to follow. 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 She provides rides to people she knows, and enjoys mowing her large yard. Medications Medication Management: No Issues/Barriers identified Advance Directives Advance Directives: Do you have an Advance Directive: Y 10/04/19 12:46 AD On File at [facility]: Y 10/04/19 12:46 Date Asked 08/26/19 10/04/19 12:46 AD Date Reviewed 05/29/23 05/29/23 13:34 COLST On File at [facility] COLST Date Scanned Code Status Resuscitation Status Full Code Insurance Coverage/Financial Issues Insurance: [facility] Care Team Visit Care Team Role Provider Type Scarlet So MD, [place] Primary Care Provider , [place] MEDICAL STAFF Amy Gupta, DO Other Providers OSTEOPATHIC DOCTOR Shahzad Tompkins MD Emergency Provider [facility] STAFF PHYSICIAN Christopher De Los Santos Admit Provider NON-[facility] STAFF PHYSICIAN Attending Provider Discharge Potential Discharge Needs: PCP F/U Appt Anticipated Barriers to Discharge: None Identified Patient/Family Education Needs: Review discharge instructions, discuss Ask Me Three Transportation: Private vehicle Plan: Anticipate Wen will return home once medically cleared. Her will drive her home via private vehicle. She will follow up with her PCP and discharge plan of care. CM will continue to follow. PFSH All Active Problems (Updated 06/28/24 @ 13:38 by Mervat Valle APRN) GIB (gastrointestinal bleeding) (Chronic) Pneumonia (Acute) Acute hypoxic respiratory failure (Acute) Hypoxemia (Acute) Ground glass opacity present on imaging of lung (Acute) Carpal tunnel syndrome of left wrist (Acute 05/20/15) Abnormal EKG (Acute 11/26/15) Spastic bladder (Acute) Hypoxia (Acute 12/14/15) restrictive by PFT 2015 Cough (Acute 07/07/16) Ganglion cyst of foot (Acute 08/08/17) Increased body mass index (Acute) Knee pain (Acute 03/12/13) Pain of both shoulder joints (Acute 04/04/17) Right hip pain (Acute) Left hip pain (Acute) Piriformis syndrome (Acute) Sacroiliac dysfunction (Acute) Pre-diabetes (Acute) BMI 45.0-49.9, adult (Acute) Tricuspid valve insufficiency (Chronic 11/29/15) Sleep apnea (Chronic) CPAP not needed Restless legs syndrome (Chronic 03/03/14) Hiatal hernia (Chronic) 04/19/16 [facility] [place] Urinary, incontinence, stress female (Chronic 07/02/13) Medical History Pulmonary hypertension (12/14/15) Restrictive lung disease (11/23/15) Hypothyroid Deep vein thrombosis (01/01/15) Hypertension GERD (gastroesophageal reflux disease) Hyperlipidemia Depression Anxiety Surgical History History of esophagogastroduodenoscopy History of laparoscopic cholecystectomy (12/02/15) Status post abdominal hysterectomy Status post breast biopsy Status post carpal tunnel release (06/02/15) Open Carpal Tunnel release 06/02/15; LEFT Jono Fundoplication (~09/2016) [facility] [place]LAPROSCOPIC Abdominal hysterectomy (~1982) Cholecystectomy (12/02/15) Bunionectomy 10/27/17; left; Dr. Brandon Biopsy of breast (~1988) RIGHT Family History Mother , age 82 No problems noted. Father , age 92 No problems noted. Brother No problems noted. Son No problems noted. Social History Smoking/Tobacco Use Status: Never Second Hand Exposure: No Smoking risk assessment performed?: Yes Alcohol Intake: current Alcohol Intake frequency: holidays/special occasions only Alcohol type: wine Drug use: Never Substance use type: does not use Caregiver/Support person: No Household members: spouse Housing: house Communication Needs: None Do you need help understanding health information?: Never Pets and animals: No Sexually active: No Do you think of yourself as: straight/heterosexual Current gender identity: female What is your relationship status?: How often do you talk on the phone with friends or family?: three or more times per week How often do you get together with friends or relatives?: three or more times per week How often do you attend yarsanism or nondenominational services?: 1-3 times per year Do you belong to any clubs or organized social groups?: no Panel score (0-1 are the most socially isolated patients): 2 What type of physical activity do you participate in: walking Duration: 15-30 minutes/day Frequency: 3-4 times per week Anita/Sikhism: Holiness Special anita needs: No Seatbelt use: always Helmet use: Yes Helmet use: always Drive intox or ride w/intox substitute bus driver: No SDOH(Care Management) Screening Will the Patient Participate in the Screening?: Yes Do you worry about having a steady place to live?: no Problems where you live: no known problems In the past 12 months, have you had to go without electric, gas, oil or water in your home?: no Have you or anyone in your house had to go without enough food to eat?: no Has lack of transportation kept you from medical appointments or from doing things needed for daily living?: no Has anyone in your support network made you feel unsafe for any reason?: no
[2024-06-28] MEDS: Nystatin POWDER 60 GM JAR TP (15:25)
[2024-06-28] MEDS: Pantoprazole 40 MG VIAL IVP ×2 (15:30→20:22)
[2024-06-28] MEDS: Losartan 50 MG TAB 100 MG PO (15:30)
[2024-06-28] MEDS: Escitalopram 20 MG TAB PO (15:30)
[2024-06-28] MEDS: Metoprolol CR 25 MG TABCR PO (15:30)
[2024-06-28] MEDS: Furosemide 20 MG/2 ML VIAL IVP (15:30)
[2024-06-28] MEDS: Normal Saline 10 ML VIAL IJ (15:31)
[2024-06-28] MEDS: Benzonatate 200 MG CAP PO ×2 (15:32→20:23)
--- NOTE | 2024-06-28 16:11 | CHAPLAIN ---
Wen was resting in bed when I visited. Her , Silas was with her. She had a rough coughing spell while I was there. She hasn't been able to eat for a while. Wen was pleasant and engaged in conversation with me. I explained my role and offered support.
[2024-06-28 17:02] LABS: COVID-19 PCR Negative (Negative); Influenza A PCR Negative (Negative); Influenza B PCR Negative (Negative); RSV PCR Negative (Negative)
[2024-06-28 17:09] LABS: Source Nasopharynx
--- NOTE | 2024-06-28 19:59 | W.SURGCON ---
Date of service: 06/28/24 Time of Service: 19:59 Assessment and Plan Assessment and plan (1) Hematemesis: Status: Acute Assessment and plan: I did review the case with anesthesia. At this point I do not think the patient is medically stable for an EGD. Once the pneumonia and her acute symptoms have passed I do think that an EGD is warranted. She does have a history of significant reflux and a Jono. So I think we should take a look and see if her Jono has slipped or anything else that could be causing her problems. But I think it would be better to do this once the pneumonia is resolved and her respiratory status is more stable. Tonight she has not had any further episodes nausea or vomiting. She is hungry and would like to try something small to eat like a yogurt or applesauce or some juice. We will continue to treat her medically and trend her hemoglobin and ferritin's And close observation (2) BMI 45.0-49.9, adult: Status: Acute (3) Hiatal hernia: (4) Ground glass opacity present on imaging of lung: Status: Acute (5) Acute hypoxic respiratory failure: Status: Acute (6) Pneumonia: Status: Acute Qualifiers: Laterality: bilateral Lung location: unspecified part of lung Pneumonia type: due to unspecified organism Qualified Code(s): J18.9 - Pneumonia, unspecified organism (7) Cough: Status: Acute (8) Restrictive lung disease: (9) GERD (gastroesophageal reflux disease): (10) Deep vein thrombosis: (11) Pulmonary hypertension: (12) Hypertension: Qualifiers: Hypertension type: primary hypertension Qualified Code(s): I10 - Essential (primary) hypertension (13) Hyperlipidemia: Qualifiers: Hyperlipidemia type: mixed hyperlipidemia Qualified Code(s): E78.2 - Mixed hyperlipidemia (14) Hypothyroid: Qualifiers: Hypothyroidism type: acquired Qualified Code(s): E03.9 - Hypothyroidism, unspecified (15) Sleep apnea: Status: Chronic History of Present Illness Narrative: From admitting H&P: This is a 79-year-old female patient who has a history of restrictive lung disease with bilaterally elevated diaphragms which occurred postoperatively after a gallbladder removal years ago with oxygen needs briefly after that episode and pulmonary hypertension who received a RSV/COVID vaccine 2 weeks prior to presentation. She began to have tachypnea with walking at home with her saturations were at 88% the patient chronically not on oxygen. She developed a cough with sore throat and hoarseness which began the afternoon of presentation and progressed with the above oxygen needs with minimal dyspnea upon exertion. She was due to get a flu vaccine this coming weekend. She has had no fever or chest pain and no abdominal pain. She did have bouts of emesis when coughing/gagging with sore throat. She is not nauseated. She presented to the ED and did require oxygen supplementation with a pulse oximeter dropping especially after exertion with chest x-ray being unrevealing but CTA of the chest revealing no PE with a history of previous thromboemboli, but bilateral groundglass opacities consistent with pneumonia most likely viral etiology though the patient was negative for RSV/influenza and COVID with screening. Her symptoms had just began prior to presentation and these will be repeated within the next 12 hours. She was admitted for her acute oxygen needs and treatment of bilateral pneumonia though it may appear viral. She was given Rocephin and Zithromax which will be continued to cover community-acquired pneumonia though the rectal be changed to doxycycline because of patient's long-term use of SSRI. O2 supplementation as needed and respiratory care as needed. As stated, we will repeat viral screening later the day of admission. today: Use week eating She is not currently on blood thinners other than DVT prophylaxis Lovenox. She does not take aspirin daily or take a large amount of NSAIDs. She is not currently on any stomach medication. She denies any nausea or vomiting. She denies any heartburn or indigestion. She is not having any abdominal pain. She is coughing pretty much continuously she is on a liter of oxygen with sats in the 90s. When they take her oxygen off sats fall down into the high 80s. She has had a longstanding history of GERD. She did have laparoscopic Jono 5 to 7 years ago at [facility]. She will occasionally get some breakthrough symptoms but for the most part denies any problems with heartburn or indigestion. She denies any pain or difficulty swallowing other than she has been coughing so much. Her appetite has been poor from the pneumonia so she thinks she has not been eating because of that. Her weight has been stable. She has not noticed any bright red blood in her stools or dark tarry stools. She has not had a bowel movement since she has been in the hospital. Review of Systems All systems reviewed & are unremarkable except as noted in HPI and below PFSH All Active Problems (Updated 06/29/24 @ 11:27 by Amy Gupta DO) Hematemesis (Acute) GIB (gastrointestinal bleeding) (Chronic) Pneumonia (Acute) Acute hypoxic respiratory failure (Acute) Hypoxemia (Acute) Ground glass opacity present on imaging of lung (Acute) Carpal tunnel syndrome of left wrist (Acute 05/20/15) Abnormal EKG (Acute 11/26/15) Spastic bladder (Acute) Hypoxia (Acute 12/14/15) restrictive by PFT 2015 Cough (Acute 07/07/16) Ganglion cyst of foot (Acute 08/08/17) Increased body mass index (Acute) Knee pain (Acute 03/12/13) Pain of both shoulder joints (Acute 04/04/17) Right hip pain (Acute) Left hip pain (Acute) Piriformis syndrome (Acute) Sacroiliac dysfunction (Acute) Pre-diabetes (Acute) BMI 45.0-49.9, adult (Acute) Tricuspid valve insufficiency (Chronic 11/29/15) Sleep apnea (Chronic) CPAP not needed Restless legs syndrome (Chronic 03/03/14) Urinary, incontinence, stress female (Chronic 07/02/13) Medical History (Updated 06/29/24 @ 11:27 by Amy Gupta DO) Hiatal hernia 04/19/16 [facility]-6cm Pulmonary hypertension (12/14/15) Restrictive lung disease (11/23/15) Hypothyroid Deep vein thrombosis (01/01/15) Hypertension GERD (gastroesophageal reflux disease) Hyperlipidemia Depression Anxiety Surgical History History of esophagogastroduodenoscopy History of laparoscopic cholecystectomy (12/02/15) Status post abdominal hysterectomy Status post breast biopsy Status post carpal tunnel release (06/02/15) Open Carpal Tunnel release 06/02/15; LEFT Jono Fundoplication (~09/2016) [facility]-LAPROSCOPIC Abdominal hysterectomy (~1982) Cholecystectomy (12/02/15) Bunionectomy 10/27/17; left; Dr. Brandon Biopsy of breast (~1988) RIGHT Family History Mother , age 82 No problems noted. Father , age 92 No problems noted. Brother No problems noted. Son No problems noted. Social History Smoking/Tobacco Use Status: Never Second Hand Exposure: No Smoking risk assessment performed?: Yes Alcohol Intake: current Alcohol Intake frequency: holidays/special occasions only Alcohol type: wine Drug use: Never Substance use type: does not use Caregiver/Support person: No Household members: spouse Housing: house Communication Needs: None Do you need help understanding health information?: Never Pets and animals: No Sexually active: No Do you think of yourself as: straight/heterosexual Current gender identity: female What is your relationship status?: How often do you talk on the phone with friends or family?: three or more times per week How often do you get together with friends or relatives?: three or more times per week How often do you attend islam or anabaptist services?: 1-3 times per year Do you belong to any clubs or organized social groups?: no Panel score (0-1 are the most socially isolated patients): 2 What type of physical activity do you participate in: walking Duration: 15-30 minutes/day Frequency: 3-4 times per week Anita/Baptism: Yazidism Special anita needs: No Seatbelt use: always Helmet use: Yes Helmet use: always Drive intox or ride w/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 in no acute distress HYDRATION: Well hydrated HEAD, EYES, EARS, NECK, THROAT: Head is normocephalic, pupils equal, round, reactive to light and accommodation, ocular movement intact, sclera clear and no jaundice. ?Dentition intact. LUNGS: normal respiration/normal chest excursion. b/l rhonchi/coughing/bronchial sounds ?HEART: Regular rate and rhythm. no murmurs ABDOMEN: soft and non-tender to palpation.? Normal bowel sounds.? No hernias.? Postsurgical changes noted Results Last Vital Signs Temp 37.0 C 06/28/24 19:22 Pulse 75 06/28/24 19:52 Resp 18 06/28/24 19:52 BP 143/78 H 06/28/24 19:22 Pulse Ox 88 L 06/28/24 19:52 Labs 06/29/24 06:20 06/29/24 06:20 Labs: Laboratory Results - last 24 hr 06/28/24 06/28/24 06/28/24 01:12 01:35 07:37 WBC 9.20 RBC 4.26 Hgb 13.3 Hct 42.1 MCV 99 H MCH 31.2 MCHC 31.6 L RDW 13.0 Plt Count 268 MPV 9.2 Immature Gran % 0.3 Neutrophils % 71.2 Lymphocytes % 17.2 Monocytes % 9.6 Eosinophils % 1.3 Basophils % 0.4 Nucleated RBC % 0.0 Absolute Neutrophils 6.55 Absolute Lymphocytes 1.58 Absolute Monocytes 0.88 H Absolute Eosinophils 0.12 Absolute Basophils 0.04 VBG pH 7.33 VBG pCO2 60 H VBG pO2 22 VBG HCO3 32 H VBG Total CO2 29 VBG O2 Saturation 36 VBG Base Excess 6 H Sodium 135 L Potassium 4.1 Chloride 100 Carbon Dioxide 31.2 Anion Gap 3.8 BUN 14 Creatinine 1.3 H Est GFR (CKD-EPI 2020) 42.35 Glucose 97 Calcium 9.2 Total Bilirubin 0.35 AST 20 ALT 28 Alkaline Phosphatase 90 NT-Pro-B Natriuret Pep 76 Total Protein 7.8 Albumin 3.5 TSH 4.25 H Free T4 0.81 COVID-19 Source Nasopharynx SARS-CoV-2 (PCR) Negative Influenza Type A (PCR) Negative Influenza Type B (PCR) Negative RSV (PCR) Negative Add-On Test Request COMPLETED 06/28/24 06/28/24 15:05 15:45 WBC RBC Hgb Hct MCV MCH MCHC RDW Plt Count MPV Immature Gran % Neutrophils % Lymphocytes % Monocytes % Eosinophils % Basophils % Nucleated RBC % Absolute Neutrophils Absolute Lymphocytes Absolute Monocytes Absolute Eosinophils Absolute Basophils VBG pH VBG pCO2 VBG pO2 VBG HCO3 VBG Total CO2 VBG O2 Saturation VBG Base Excess Sodium Potassium Chloride Carbon Dioxide Anion Gap BUN Creatinine Est GFR (CKD-EPI 2020) Glucose Calcium Total Bilirubin AST ALT Alkaline Phosphatase NT-Pro-B Natriuret Pep Total Protein Albumin TSH Free T4 COVID-19 Source Cancelled Nasopharynx SARS-CoV-2 (PCR) Cancelled Negative Influenza Type A (PCR) Cancelled Negative Influenza Type B (PCR) Cancelled Negative RSV (PCR) Cancelled Negative Add-On Test Request
[2024-06-28] MEDS: Oxybutynin 5 MG TAB PO (20:23)
[2024-06-28] MEDS: Amitriptyline 50 MG TAB 100 MG PO (20:23)
[2024-06-28] MEDS: guaiFENesin 600 MG TABCR PO (20:24)
[2024-06-28] MEDS: Sucralfate 1 GM TAB PO (22:26)
[2024-06-29] VITALS (12 sets, daily range): BP systolic 94–122; BP diastolic 52–75; PULSE 66–86; RESP 2–19; TEMP 37–37.1; O2SAT 92–98
[2024-06-29] MEDS: cefTRIAXone 1 GM/50 ML BAG IVPB (03:27)
[2024-06-29] MEDS: Levothyroxine 50 MCG TAB PO (06:15)
[2024-06-29] MEDS: DOXYCYCLINE 100 MG in Normal Saline 100 ML IVPB ×2 (06:15→18:17)
[2024-06-29 06:36] LABS: HCT 39.2 % (36.0-46.0); HGB 12.7 g/dL (11.2-15.7); MCH 31.8 pg (27.0-33.0); MCHC 32.4 % (32.0-36.0); MCV 98 fL (80-95); MPV 9.6 fL (8.0-11.0); Platelet Count 253 10^3/uL (130-400); RDW 13.3 % (11.7-14.6); WBC 10.02 10^3/uL (4.4-10.8)
[2024-06-29 07:25] LABS: ALT 21 U/L (14-59); AST 21 U/L (15-37); Albumin 3.2 g/dL (3.4-5.0); Alkaline Phosphatase 85 U/L (46-116); Anion Gap 5.2 mmol/L (3-11); BUN 14 mg/dL (7-18); CO2 30.8 mmol/L (21.0-32.0); CREATININE 1.3 mg/dL (0.55-1.02); Calcium 9.4 mg/dL (8.5-10.1); Chloride 102 mmol/L (98-107); Estimated GFR 42.35 (mL/min/1.73m2); Ferritin 104 ng/mL (8-252); Glucose 97 mg/dL (74-106); Potassium 3.6 mmol/L (3.5-5.1); Sodium 138 mmol/L (136-145); Total Protein 7.4 g/dL (6.4-8.2)
[2024-06-29 07:38] LABS: Vitamin B12 346 pg/mL (193-986)
[2024-06-29] MEDS: Losartan 50 MG TAB 100 MG PO (07:56)
[2024-06-29] MEDS: Metoprolol CR 25 MG TABCR PO (07:56)
[2024-06-29] MEDS: Escitalopram 20 MG TAB PO (07:56)
[2024-06-29] MEDS: Atorvastatin 40 MG TAB PO (07:56)
[2024-06-29] MEDS: Benzonatate 200 MG CAP PO ×3 (07:56→21:45)
[2024-06-29] MEDS: Sucralfate 1 GM TAB PO ×4 (07:56→21:41)
[2024-06-29] MEDS: Oxybutynin 5 MG TAB PO ×2 (07:56→21:41)
[2024-06-29] MEDS: guaiFENesin 600 MG TABCR PO ×2 (07:57→21:41)
[2024-06-29 08:20] LABS: Reticulocyte 1.7 % (0.5-2.4)
[2024-06-29] MEDS: Albuterol/Ipratropium 3 ML UPD VIAL UPD ×3 (08:56→19:55)
[2024-06-29] MEDS: Pantoprazole 40 MG VIAL IVP (10:59)
--- NOTE | 2024-06-29 11:25 | PGE_ITS ---
Date of Service Date of service: 06/29/24 Time of Service: 11:25 Assessment and Plan Assessment and plan (1) BMI 45.0-49.9, adult: Status: Acute (2) Hematemesis: Status: Acute Assessment and plan: At this point I do not feel that patient is a good candidate for anesthesia. Patient is to have an EGD always do's have some degree of desaturation with anesthesia and being that she has baseline lung disease with bilateral pneumonia on top I do not think that this is currently safe. She does not exhibit any signs of active bleeding. There is no underlying liver disease or portal hypertension She is on chronic anticoagulation for PE/DVT. This is currently being held and she is getting subcu Lovenox She is on maximal medical therapy with Carafate ACHS and Protonix twice daily Her hemoglobin has been stable and we will continue to trend hemoglobin -MiraLAX today. He may test any resulting stools. -Plan to follow-up as a outpatient and will schedule EGD at that point once her pneumonia has resolved and she feels stronger (3) Jono Fundoplication: (4) Pneumonia: Status: Acute Qualifiers: Laterality: bilateral Lung location: unspecified part of lung Pneumonia type: due to unspecified organism Qualified Code(s): J18.9 - Pneumonia, unspecified organism (5) Cough: Status: Acute (6) Sleep apnea: Status: Chronic (7) Restrictive lung disease: (8) Deep vein thrombosis: (9) Hypertension: Qualifiers: Hypertension type: primary hypertension Qualified Code(s): I10 - Essential (primary) hypertension (10) Pulmonary hypertension: (11) Hyperlipidemia: Qualifiers: Hyperlipidemia type: mixed hyperlipidemia Qualified Code(s): E78.2 - Mixed hyperlipidemia (12) GERD (gastroesophageal reflux disease): Subjective Subjective Interval history since last seen: Pt is doing well. no headaches. No CP or SOB. no dysuria. no leg pain or swelling. Patient's hemoglobin is stable today at 12.5 She is still on 2 L of oxygen She also has underlying restrictive lung disease /history of pulmonary hypertension/and baseline hypoxia She is currently in the hospital with bilateral pneumonia and requiring 2 L of oxygen. Her cough is better today She does have a history of GERD and had a Jono fundoplication 5 years ago. She only occasionally requires a Tums now and then. And feels her reflux is mo derately well-controlled. She has not had a bowel movement since she has been in the hospital. Exam Narrative Exam Narrative: abdom is soft and non tender. Objective Last Vital Signs Temp 37.1 C 06/29/24 07:57 Pulse 68 06/29/24 09:03 Resp 18 06/29/24 09:03 BP 114/67 06/29/24 07:57 Pulse Ox 94 06/29/24 09:12 Laboratory Results - last 24 hr 06/28/24 06/28/24 06/29/24 15:05 15:45 06:20 WBC 10.02 RBC 4.00 Hgb 12.7 Hct 39.2 MCV 98 H MCH 31.8 MCHC 32.4 RDW 13.3 Plt Count 253 MPV 9.6 Reticulocyte % (Auto) 1.7 Sodium 138 Potassium 3.6 Chloride 102 Carbon Dioxide 30.8 Anion Gap 5.2 BUN 14 Creatinine 1.3 H Est GFR (CKD-EPI 2020) 42.35 Glucose 97 Calcium 9.4 Magnesium 2.0 Ferritin 104 Total Bilirubin 0.60 AST 21 ALT 21 Alkaline Phosphatase 85 Total Protein 7.4 Albumin 3.2 L Vitamin B12 346 Folate 4.0 L COVID-19 Source Cancelled Nasopharynx SARS-CoV-2 (PCR) Cancelled Negative Influenza Type A (PCR) Cancelled Negative Influenza Type B (PCR) Cancelled Negative RSV (PCR) Cancelled Negative Time Spent with Patient Time Spent with Patient: <25 minutes Time was spent: preparing to see the patient(eg.review tests), obtaining and/or reviewing separately otained hiistory, ordering medications,tests, procedures, referring, communicating with other health health care specialist, indepentently i nterpreting results, counseling the patient, care coordination and other
[2024-06-29] MEDS: Nystatin POWDER 60 GM JAR TP ×2 (13:24→21:42)
--- NOTE | 2024-06-29 16:44 | PGE_ITS ---
Date of Service Date of service: 06/29/24 Time of Service: 16:44 Assessment and Plan Assessment and plan (1) Acute hypoxic respiratory failure: Status: Acute Assessment and plan: admitted for community acquired pneumonia, but received IV lasix with history of pulmonary htn -continue -Ceftriaxone and Doxycycline day 2 (-Zithromax changed to doxycycline because the patient's use of SSRIs) Viral screening was negative for RSV/COVID/influenza wean oxygen supplementation for sat >92% Testing for legionella, strep pneumoniae and mycoplasma pneumoniae pending (2) Pneumonia: Status: Acute Assessment and plan: As above Qualifiers: Pneumonia type: due to unspecified organism Laterality: bilateral Lung location: unspecified part of lung Qualified Code(s): J18.9 - Pneumonia, unspecified organism (3) Hypothyroid: Assessment and plan: TSH 4.25 Continue home dose levothyroxine Qualifiers: Hypothyroidism type: acquired Qualified Code(s): E03.9 - Hypothyroidism, unspecified (4) Pulmonary hypertension: Assessment and plan: Echocardiogram Previous on in 2019 w LVEF of 55-60% with RSVP 30 lasix 20 mg IVP X1 consider repeating echo when available. (5) Restrictive lung disease: Assessment and plan: As above continue respiratory care with nebulizers. not be started on steroids unless worsening symptoms. (6) Hypertension: Assessment and plan: Continue home med regimen Qualifiers: Hypertension type: primary hypertension Qualified Code(s): I10 - Essential (primary) hypertension (7) Hyperlipidemia: Assessment and plan: Continue home statin therapy. Qualifiers: Hyperlipidemia type: mixed hyperlipidemia Qualified Code(s): E78.2 - Mixed hyperlipidemia (8) Depression: Assessment and plan: Continue outpatient medical therapy, on SSRI's Qualifiers: Depression Type: other depression Qualified Code(s): F32.89 - Other specified depressive episodes (9) GIB (gastrointestinal bleeding): Status: Chronic Assessment and plan: one episode of coffee ground emesis- heme tested positive -H&H stable -continue PPI and carafate -consult with Dr. Gupta with plan for outpatient scope compazine PRN Discussed with Dr Wells. Subjective Subjective Patient reports: no new complaints, feels better, tolerating liquids well and t olerating a regular diet Interval history since last seen: Still requiring oxygen at 2 L per nasal cannula. Coughing with sputum production Exam Narrative Exam Narrative: Elderly female appearing younger than stated age head is atraumatic eyes nonicteric noninjected oral mucosa is moist neck supple with full range of motion cardiovascular regular rate and rhythm respirations even and unlabored breath sounds diminished in the bases with occasional scattered coarse breath sound no wheezing abdomen round nontender moves all extremities neurologic awake alert oriented no focal deficits psychiatric normal mood and affect Objective Last Vital Signs Temp 37.1 C 06/29/24 14:27 Pulse 86 06/29/24 14:27 Resp 16 06/29/24 14:27 BP 94/56 L 06/29/24 14:27 Pulse Ox 93 06/29/24 14:27 Laboratory Results - last 24 hr 06/28/24 06/28/24 06/29/24 15:45 15:47 06:20 WBC 10.02 RBC 4.00 Hgb 12.7 Hct 39.2 MCV 98 H MCH 31.8 MCHC 32.4 RDW 13.3 Plt Count 253 MPV 9.6 Reticulocyte % (Auto) 1.7 Sodium 138 Potassium 3.6 Chloride 102 Carbon Dioxide 30.8 Anion Gap 5.2 BUN 14 Creatinine 1.3 H Est GFR (CKD-EPI 2020) 42.35 Glucose 97 Calcium 9.4 Magnesium 2.0 Ferritin 104 Total Bilirubin 0.60 AST 21 ALT 21 Alkaline Phosphatase 85 Total Protein 7.4 Albumin 3.2 L Vitamin B12 346 Folate 4.0 L COVID-19 Source Nasopharynx SARS-CoV-2 (PCR) Negative Influenza Type A (PCR) Negative Influenza Type B (PCR) Negative M. pneumoniae Source Cancelled M. pneumoniae (PCR) Cancelled RSV (PCR) Negative Time Spent with Patient Time Spent with Patient: 35-49 minutes Time was spent: preparing to see the patient(eg.review tests), obtaining and/or reviewing separately otained hiistory, ordering medications,tests, procedures, indepentently interpreting results and counseling the patient
[2024-06-29] MEDS: Normal Saline Flush 10 ML SYR IVP (18:19)
[2024-06-29] MEDS: Amitriptyline 50 MG TAB 100 MG PO (21:41)
[2024-06-29] MEDS: Polyethylene Glycol 3350 17 GM PACKET PO (21:45)
[2024-06-29 22:32] LABS: Legionella Ag Detection Urine Negative (Negative)
[2024-06-30] VITALS (10 sets, daily range): BP systolic 124–125; BP diastolic 65–79; PULSE 72–88; RESP 9–20; TEMP 37.1; O2SAT 88–97
[2024-06-30] MEDS: Normal Saline Flush 10 ML SYR IVP ×2 (00:09→07:50)
[2024-06-30] MEDS: Pantoprazole 40 MG VIAL IVP ×2 (00:10→07:58)
[2024-06-30] MEDS: cefTRIAXone 1 GM/50 ML BAG IVPB (03:23)
[2024-06-30] MEDS: DOXYCYCLINE 100 MG in Normal Saline 100 ML IVPB (05:23)
[2024-06-30] MEDS: Levothyroxine 50 MCG TAB PO (05:24)
[2024-06-30] MEDS: Lactobacillus Acidophilus CAP 1 CAP PO ×2 (07:48→14:29)
[2024-06-30] MEDS: Atorvastatin 40 MG TAB PO (07:49)
[2024-06-30] MEDS: Losartan 50 MG TAB 100 MG PO (07:49)
[2024-06-30] MEDS: Folic Acid 1 MG TAB PO (07:49)
[2024-06-30] MEDS: Oxybutynin 5 MG TAB PO (07:49)
[2024-06-30] MEDS: guaiFENesin 600 MG TABCR PO (07:49)
[2024-06-30] MEDS: Escitalopram 20 MG TAB PO (07:49)
[2024-06-30] MEDS: Sucralfate 1 GM TAB PO ×2 (07:50→15:49)
[2024-06-30] MEDS: Metoprolol CR 25 MG TABCR PO (07:50)
[2024-06-30] MEDS: Benzonatate 200 MG CAP PO ×2 (07:50→14:29)
[2024-06-30] MEDS: Polyethylene Glycol 3350 17 GM PACKET PO (07:58)
[2024-06-30] MEDS: Docusate Sodium 100 MG CAP PO (07:58)
[2024-06-30] MEDS: Albuterol/Ipratropium 3 ML UPD VIAL UPD ×2 (08:11→14:47)
--- NOTE | 2024-06-30 09:22 | W.PM.PROGNOT ---
Date of Service Date of service: 06/30/24 Time of Service: 09:23 Assessment and Plan Assessment and plan (1) Acute hypoxic respiratory failure: Status: Acute Assessment and plan: admitted for community acquired pneumonia, but received IV lasix with history of pulmonary htn -continue -Ceftriaxone and Doxycycline day 2 (-Zithromax changed to doxycycline because the patient's use of SSRIs) Viral screening was negative for RSV/COVID/influenza wean oxygen supplementation for sat >92% Testing for legionella, strep pneumoniae and mycoplasma pneumoniae pending (2) Pneumonia: Status: Acute Assessment and plan: As above Qualifiers: Pneumonia type: due to unspecified organism Laterality: bilateral Lung location: unspecified part of lung Qualified Code(s): J18.9 - Pneumonia, unspecified organism (3) Hypothyroid: Assessment and plan: TSH 4.25 Continue home dose levothyroxine Qualifiers: Hypothyroidism type: acquired Qualified Code(s): E03.9 - Hypothyroidism, unspecified (4) Pulmonary hypertension: Assessment and plan: Echocardiogram Previous on in 2019 w LVEF of 55-60% with RSVP 30 lasix 20 mg IVP X1 consider repeating echo when available. (5) Restrictive lung disease: Assessment and plan: As above continue respiratory care with nebulizers. not be started on steroids unless worsening symptoms. (6) Hypertension: Assessment and plan: Continue home med regimen Qualifiers: Hypertension type: primary hypertension Qualified Code(s): I10 - Essential (primary) hypertension (7) Hyperlipidemia: Assessment and plan: Continue home statin therapy. Qualifiers: Hyperlipidemia type: mixed hyperlipidemia Qualified Code(s): E78.2 - Mixed hyperlipidemia (8) Depression: Assessment and plan: Continue outpatient medical therapy, on SSRI's Qualifiers: Depression Type: other depression Qualified Code(s): F32.89 - Other specified depressive episodes (9) GIB (gastrointestinal bleeding): Status: Chronic Assessment and plan: one episode of coffee ground emesis- heme tested positive -H&H stable -continue PPI and carafate -consult with Dr. Gupta with plan for outpatient scope compazine PRN Discussed with Dr Wells. Exam Narrative Exam Narrative: Constitutional The patientin bed comfortable ,without acute distress Eyes: Well aligned Neuro:alert and oriented X4. No neurological focal deficit Chest:Chest is symmetrical and normal appearance Resp: Crackles bilaterally her to upper and lower lung mcleod Cardio:EKG in the ED showed SR HR 60- Tele ordered reading not available at this time; regular rhythm, S1, S2, no murmur, bilateral radial and pedal pulses are positive GI: Abdomen is not distended, soft and non tender, bowel sounds are present : Negative Costovertebral angle tenderness Back/spine/Pelvis: No back tenderness, normal alignment Integumentary: No skin lesions or rash Extremities: strength 5/5 to bilateral lower and upper extremities Psych: RASS 0, congruent mood and normal affect. Objective Last Vital Signs Temp 37.1 C 06/30/24 07:44 Pulse 80 06/30/24 08:23 Resp 18 06/30/24 08:23 BP 125/72 06/30/24 07:44 Pulse Ox 93 06/30/24 08:25 Laboratory Results - last 24 hr 06/28/24 15:47 M. pneumoniae Source Cancelled M. pneumoniae (PCR) Cancelled
[2024-06-30 10:01] LABS: Abs Immature Grans 0.03 10^3/uL (0.0-0.06); Absolute Basophil Count 0.02 10^3/uL (0.0-0.2); Absolute Eosinophil Count 0.27 10^3/uL (0.0-0.7); Absolute Lymphocyte Count 1.28 10^3/uL (1.2-3.4); Absolute Monocyte Count 0.99 10^3/uL (0.1-0.8); Absolute Neutrophil Count 5.92 10^3/uL (1.2-6.7); Basophils % 0.2 %; Eosinophils % 3.2 %; HGB 12.4 g/dL (11.2-15.7); Immature Grans % 0.4 %; MCH 31.5 pg (27.0-33.0); MCHC 31.8 % (32.0-36.0); MCV 99 fL (80-95); Monocytes % 11.6 %; Neutrophils % 69.6 %; Platelet Count 239 10^3/uL (130-400); RBC 3.94 10^6/uL (3.93-5.22); RDW 13.4 % (11.7-14.6); RDW-SD 49.3 fL; WBC 8.51 10^3/uL (4.4-10.8)
[2024-06-30 10:11] LABS: Anion Gap 7.2 mmol/L (3-11); BUN 20 mg/dL (7-18); CO2 28.8 mmol/L (21.0-32.0); CREATININE 1.4 mg/dL (0.55-1.02); Calcium 9.1 mg/dL (8.5-10.1); Chloride 99 mmol/L (98-107); Estimated GFR 38.75 (mL/min/1.73m2); Glucose 126 mg/dL (74-106); Potassium 3.8 mmol/L (3.5-5.1); Sodium 135 mmol/L (136-145)
--- NOTE | 2024-06-30 10:46 | PDOC.CMDIS ---
Date of service: 06/30/24 Time of Service: 10:46 LACE Index Scoring Tool Questions: Length of Stay (in days): 2 Was the patient admitted via the E.D.?: Yes E.D. Visits: 0 Answers: Total Score: 5 Risk of Readmission: Low Risk Care Management Discharge Plan Reason for Hospitalization: acute respiratory failure with hypoxemia Discharge Plan: Wen will return home today with no new services. Her will drive her home via private vehicle. She will follow up with her PCP and discharge plan of care. She is happy to be going home. Patient/Family Education Needs: Review discharge instructions and limitations, discussion of self care needs including ask me three. SDHI Health Related Social Needs: No Data to Display
[2024-06-30] MEDS: Nystatin POWDER 60 GM JAR TP (14:29)
--- NOTE | 2024-06-30 15:00 | W.PM.DS.N ---
Date of service: 06/30/24 Time of Service: 15:01 DS: Diagnosis Discharge Diagnosis (1) Acute hypoxic respiratory failure: Status: Acute (2) Pneumonia: Status: Acute (3) Hypothyroid: (4) Pulmonary hypertension: (5) Restrictive lung disease: (6) Hypertension: (7) Hyperlipidemia: (8) Depression: (9) GIB (gastrointestinal bleeding): Status: Chronic Discharge Plan Disposition Patient Disposition: Home Condition: Improving Discharge Details Reason For Visit: Acute respiratory Failure with hypoxemia.... Admit Date/Time: 06/28/24 03:23 Admit Provider: Christopher De Los Santos Attending Provider: Christopher De Los Santos Primary Care Provider: Scarlet So Hospital Course Hospital Course: This 79-year-old female patient with past medical history of restrictive lung disease, bilateral elevated diaphragm status post gallbladder removal years ago with brief need for oxygen therapy at home, pulmonary hypertension, and status post RSV/COVID vaccine 2 weeks prior to presentation presented to the ED at [facility] on 06/28/2024 with chief complaint of sore throat, cough, shortness of breath with exertion. At the time the patient denied fever, headache, chest pain, body ache but was tachypneic on ambulation with saturation on room air around 88%. Workup in the ED was remarkable for CTA showing groundglass opacities in all lung mcleod consistent with infection; study was negative for pulmonary embolus. Chemistry was generally unremarkable except for creatinine at 1.4 around baseline. CBC was without leukocytosis. EKG in the ED was read as sinus rhythm with nonspecific ST changes, without acute sign of ischemia. Upper respiratory viral panel was negative. The hospitalist was consulted and the patient admitted to the medical surgical floor for evaluation and management of acute respiratory failure with hypoxemia, community-acquired pneumonia. In the ED the patient was treated with ceftriaxone and azithromycin. During the stay, the patient continued to receive IV ceftriaxone but doxycycline while IV was given instead of azithromycin due to the fact that the patient was on SSRIs. Antigen for Legionella and strep pneumonia as well as mycoplasma pneumonia PCR were ordered and pending. An echocardiogram was completed with the following results: Conclusion Normal left ventricular wall thickness and chamber size and fraction is 55%. Wall motion is normal Right ventricle is not well-visualized but overall appears grossly normal in size and function Both atria are normal in size Mitral annular calcification There is no additional structural or hemodynamically significant valvular disease Ascending aorta measures 3.8 cm The patient developed an episode of coffee-ground emesis for which surgery was consulted but due to respiratory status Dr. Gupta elected to pursue the avenue of outpatient EGD once the pneumonia resolved. Dr. Gupta 's note mentioned history of Jono which were not stated follow-up. The patient has no further O2 requirement. Ambulatory oximetry testing showed saturation in oxygen above 88%, test was well-tolerated. The patient will be discharged home today on oral cefpodoxime, doxycycline, Mucinex, benzonatate as well as short course of probiotics and bowel management medicine. Protonix and sucralfate were initiated and will continue outpatient with further management as per primary care practitioner. Referral for surgical follow-up outpatient was ordered. The patient will need to follow-up with her primary care practitioner within 7 days of discharge. Recommendation for the patient to return to work on 07/05/2024. Discussed with Dr. Wells Home Meds and New Rx's Prescriptions: New benzonatate 200 mg Capsule 200 mg PO TID Qty: 90 0RF cefpodoxime 200 mg Tablet 200 mg PO BID Qty: 10 0RF doxycycline hyclate 100 mg Capsule 100 mg PO Q12H Qty: 10 0RF docusate sodium [Colace] 100 mg Capsule 100 mg PO BID Qty: 60 0RF Bio-K plus 50 billion cell capsule,delayed release(DR/EC) 1 cap PO DAILY Qty: 5 0RF Rx Instructions: Take 3 hours apart from antibiotics guaifenesin [Mucus Relief ER] 600 mg Tablet Extended Release 12hr 600 mg PO BID Qty: 20 0RF sucralfate 1 gram Tablet 1 g PO AC & HS Qty: 120 0RF pantoprazole [Protonix] 40 mg tablet,delayed release (DR/EC) 40 mg PO BID Qty: 60 0RF Continued fluticasone propionate 50 mcg/actuation spray,suspension 1 spray NS BID PRN (Reason: nasal congestion) Qty: 1 7RF albuterol sulfate [ProAir HFA] 90 mcg/actuation HFA aerosol inhaler 1 - 2 puff Inhalation Q4H PRN Qty: 1 4RF lorazepam 0.5 mg tablet 0.5 mg PO DAILY PRN (Reason: anxiety) Qty: 30 0RF nystatin 100,000 unit/gram powder 1 applic topical QID Qty: 60 0RF Rx Instructions: apply powder every 6 hours x 2weeks and as needed oxybutynin chloride 5 mg tablet 5 mg PO BID Qty: 180 3RF Rx Instructions: DITROPAN escitalopram oxalate 20 mg tablet 20 mg PO DAILY Qty: 90 3RF metoprolol succinate 25 mg tablet extended release 24 hr 25 mg PO DAILY Qty: 90 3RF losartan 100 mg tablet 100 mg PO DAILY Qty: 90 3RF amitriptyline 100 mg tablet 100 mg PO HS Qty: 90 4RF semaglutide (weight loss) 0.5 mg/0.5 mL pen injector 0.5 mg subcut QWEEK Qty: 8 4RF Rx Instructions: ok to compound. DO not issue a pen injector levothyroxine 50 mcg tablet 50 mcg PO DAILY Qty: 90 4RF atorvastatin 40 mg tablet 40 mg PO DAILY Qty: 90 3RF acetaminophen [Tylenol] 325 MG tablet 650 mg PO Q4H PRN PRN Discharge Instructions Referrals: Scarlet So MD, [place] [Primary Care Provider] - (Follow-up with PCP within 7 days of discharge please) Amy Gupta DO [OSTEOPATHIC DOCTOR] - (Follow-up with Dr. Gupta in 2 to 6 weeks , please- patient had a inpatient consultation) Activity:: as gennaro- back to work07/05 Equipment/Supplies:: No Equipment Needed Diet:: heart healthy Discharge Orders Discharge Orders: Discharge Order (Routine); Ordered 06/30/24 Ordered By: Mervat Valle DS: Summary Time Spent with Patient providing and/or coordinating discharge services: Greater than 30 minutes Status at Discharge Functional status at discharge: independent ambulation Overall status at discharge: patient is progressing back to baseline Mental Status: mental status grossly normal Speech and Movement: speech and movement normal Mood: congruent mood Affect: normal affect Quality:SDOH Health Related Social Needs: No Data to Display Exam Narrative Exam Narrative: Constitutional The patientin bed comfortable ,without acute distress Eyes: Well aligned Neuro:alert and oriented X4. No neurological focal deficit Chest:Chest is symmetrical and normal appearance Resp: Scaterred ronchi clearing with cough upper lobes, decreased bases with velcro-like fine crackles, on RA Cardio:Tele SR HR 69, S1, S2, no murmur GI: Abdomen is not distended, soft and non tender, bowel sounds are present Integumentary: No skin lesions or rash on exposed skin Extremities: strength 5/5 to bilateral lower and upper extremities Psych: RASS 0, congruent mood and normal affect. Psych Mental Status: mental status grossly normal Speech and Movement: speech and movement normal Mood: congruent mood Affect: normal affect DS: Data Vitals/I&O Vitals and I&O: Vital Signs Temperature 37.1 C 06/30/24 12:00 Temperature Source Tympanic 06/30/24 12:00 Pulse 72 06/30/24 14:55 Pulse Rhythm Regular 06/28/24 05:11 Pulse 61 06/28/24 04:20 Respiratory Rate 18 06/30/24 14:47 Respiratory Effort Normal 06/28/24 05:11 Respiratory Depth Normal 06/28/24 05:11 Respiratory Pattern Normal 06/28/24 05:11 Blood Pressure 124/79 06/30/24 12:00 Blood Pressure Mean 103 06/28/24 04:16 Blood Pressure Position Sitting 06/28/24 01:00 Pulse Oximetry 91 L 06/30/24 14:47 Oxygen Delivery Method Room Air 06/30/24 14:47 Oxygen Flow Rate 0 06/30/24 14:47 Pain Level 0 06/30/24 12:00 Comment map of 69, asymptomatic 06/29/24 14:27 Intake & Output 06/29/24 06/30/24 06/30/24 23:59 11:59 23:59 Intake Total 300 / 470 80 / 180 100 / 180 Output Total 600 / 600 600 / 600 Balance -300 / -130 -520 / -420 100 / -420 Intake: IV 100 / 270 80 / 180 100 / 180 Oral 200 / 200 Output: Urine 600 / 600 600 / 600 Other: Urine Color Yellow Yellow Urine Appearance Clear Clear Urine Odor Normal Comment Patient independently ambulated to toilet voided in hat. Unmeasured amount voided into toilet. Voiding Methods Toilet Toilet Data Completed and Pending Labs on day of discharge: Labs from last 24 hours 06/30/24 09:55 WBC 8.51 RBC 3.94 Hgb 12.4 Hct 39.0 MCV 99 H MCH 31.5 MCHC 31.8 L RDW 13.4 Plt Count 239 MPV 9.0 Immature Gran % 0.4 Neutrophils % 69.6 Lymphocytes % 15.0 Monocytes % 11.6 Eosinophils % 3.2 Basophils % 0.2 Nucleated RBC % 0.0 Absolute Neutrophils 5.92 Absolute Lymphocytes 1.28 Absolute Monocytes 0.99 H Absolute Eosinophils 0.27 Absolute Basophils 0.02 Sodium 135 L Potassium 3.8 Chloride 99 Carbon Dioxide 28.8 Anion Gap 7.2 BUN 20 H Creatinine 1.4 H Est GFR (CKD-EPI 2020) 38.75 Glucose 126 H Calcium 9.1 PFSH All Active Problems (Updated 06/29/24 @ 11:27 by Amy Gupta DO) Hematemesis (Acute) GIB (gastrointestinal bleeding) (Chronic) Pneumonia (Acute) Acute hypoxic respiratory failure (Acute) Hypoxemia (Acute) Ground glass opacity present on imaging of lung (Acute) Carpal tunnel syndrome of left wrist (Acute 05/20/15) Abnormal EKG (Acute 11/26/15) Spastic bladder (Acute) Hypoxia (Acute 12/14/15) restrictive by PFT 2015 Cough (Acute 07/07/16) Ganglion cyst of foot (Acute 08/08/17) Increased body mass index (Acute) Knee pain (Acute 03/12/13) Pain of both shoulder joints (Acute 04/04/17) Right hip pain (Acute) Left hip pain (Acute) Piriformis syndrome (Acute) Sacroiliac dysfunction (Acute) Pre-diabetes (Acute) BMI 45.0-49.9, adult (Acute) Tricuspid valve insufficiency (Chronic 11/29/15) Sleep apnea (Chronic) CPAP not needed Restless legs syndrome (Chronic 03/03/14) Urinary, incontinence, stress female (Chronic 07/02/13) Medical History (Updated 06/29/24 @ 11:27 by Amy Gupta DO) Hiatal hernia 04/19/16 [facility] [place]-6cm Pulmonary hypertension (12/14/15) Restrictive lung disease (11/23/15) Hypothyroid Deep vein thrombosis (01/01/15) Hypertension GERD (gastroesophageal reflux disease) Hyperlipidemia Depression Anxiety Surgical History History of esophagogastroduodenoscopy History of laparoscopic cholecystectomy (12/02/15) Status post abdominal hysterectomy Status post breast biopsy Status post carpal tunnel release (06/02/15) Open Carpal Tunnel release 06/02/15; LEFT Jono Fundoplication (~09/2016) [facility] [place]-LAPROSCOPIC Abdominal hysterectomy (~1982) Cholecystectomy (12/02/15) Bunionectomy 10/27/17; left; Dr. Brandon Biopsy of breast (~1988) RIGHT Family History Mother , age 82 No problems noted. Father , age 92 No problems noted. Brother No problems noted. Son No problems noted. Social History Smoking/Tobacco Use Status: Never Second Hand Exposure: No Smoking risk assessment performed?: Yes Alcohol Intake: current Alcohol Intake frequency: holidays/special occasions only Alcohol type: wine Drug use: Never Substance use type: does not use Caregiver/Support person: No Household members: spouse Housing: house Communication Needs: None Do you need help understanding health information?: Never Pets and animals: No Sexually active: No Do you think of yourself as: straight/heterosexual Current gender identity: female What is your relationship status?: How often do you talk on the phone with friends or family?: three or more times per week How often do you get together with friends or relatives?: three or more times per week How often do you attend cheondoism or rastafarian services?: 1-3 times per year Do you belong to any clubs or organized social groups?: no Panel score (0-1 are the most socially isolated patients): 2 What type of physical activity do you participate in: walking Duration: 15-30 minutes/day Frequency: 3-4 times per week Anita/Islam: Mormonism Special anita needs: No Seatbelt use: always Helmet use: Yes Helmet use: always 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
--- NOTE | 2024-06-30 16:32 | RESPIRATORY ---
06/30/2024 Exercise Oximetry Patient on Room Air for entire test Rest: SpO2 94%, HR 76, RR 18 Exercise: SpO2 88-92%, HR 88 Recovery: SpO2 97%, HR 82, RR 20 Lowest SpO2 88%, patient denied SOB for the entire test and does not qualify for home O2.
[2024-07-02 15:15] LABS: Streptococcus Pneumoniae Ag, U Negative (Negative)
== END 2024-06-30 16:23 | disposition home or self-care (01) | DRG 193 ==
LOC: ER 03:26 → MS 04:47
PROVIDERS: Nurse Practitioner Acute Care; Surgery; Admitting Provider Family Medicine; Emergency Provider Emergency Medicine; PCP Family Medicine; Visit Provider Family Medicine
DX: J18.9 Pneumonia, unspecified organism (principal); J96.01 Acute respiratory failure with hypoxia; K92.0 Hematemesis; Z68.41 Body mass index [BMI] 40.0-44.9, adult; E03.9 Hypothyroidism, unspecified; I27.20 Pulmonary hypertension, unspecified; J98.4 Other disorders of lung; I10 Essential (primary) hypertension; E78.2 Mixed hyperlipidemia; F32.89 Other specified depressive episodes; G47.30 Sleep apnea, unspecified; K44.9 Diaphragmatic hernia without obstruction or gangrene; K21.9 Gastro-esophageal reflux disease without esophagitis; Z86.718 Personal history of other venous thrombosis and embolism; G25.81 Restless legs syndrome; N39.3 Stress incontinence (female) (male); I07.1 Rheumatic tricuspid insufficiency; R73.03 Prediabetes; Z79.01 Long term (current) use of anticoagulants
CPT/HCPCS: 00123; 36415; 71275; 80048; 80053; 82805; 85027; 87449; 87637; 93005; 94618; 94640; 96365; 99222; 99231; 99285; 71046; 82607; 82728; 82746; 83735; 83880; 84439; 84443; 85025; 85045; 87070; 87205; 87581; 87899; 93010; 93306; 94664; 94760; 99223; 99232; 99239; J0696; J1941; J2470; J3490; J7620

== ENCOUNTER 2024-10-03 02:48 | Outpatient (CLI) | payer MEDICARE, SELFPAY ==
--- NOTE | 2024-10-03 07:21 | DI.CT_ITS ---
Exam(s) CT CHEST WO EXAM: CT CHEST WO CLINICAL HISTORY: F/U ground glass appearance on CT,R91.8. TECHNIQUE: Imaging protocol: Axial computed tomography images were obtained and coronal and sagittal reformatted images were created and reviewed. Lung Computer Aided Detection (CAD) was utilized. COMPARISON: CT CT CHEST W from 09/03/[address] CHEST PE CTA from 06/28/2024 FINDINGS: There is motion artifact. There is unchanged elevation of the right hemidiaphragm. Tracheobronchial tree: Patent where visualized. No bronchiectasis is present. Pulmonary parenchyma: No consolidation or dominant measurable mass. The ground-glass infiltrates have resolved. There is mild atelectasis seen in the lingula. There has been no change in the 3 mm nodu le associated with the left major fissure. No new nodules are seen. No follow-up is recommended for this stable perifissural nodule. Mediastinum and Radha: No dominant adenopathy or fluid collection. The esophagus is unremarkable.There is a hiatal hernia present. Thyroid gland: Unremarkable. Pleura: No effusion or pneumothorax. Heart: The heart is not dilated. Coronary artery calcification is present. No pericardial effusion. Aorta: Thoracic aorta non-dilated. Atherosclerotic calcification is present. Upper abdomen: There is a stable simple cyst in the superior pole of the right kidney. No follow-up is recommended. Status post cholecystectomy. Lymph nodes: Within normal limits. Soft tissues: Unremarkable. Bones:Within normal limits for the patient's age. IMPRESSION: 1. Resolution of the ground-glass infiltrates. 2. No acute pulmonary process. RADIATION DOSE DELIVERED: 353.55mGy.cm Total DLP 353.55mGy.cm Total DLP DATA REPOSITORY: All CT scans at this facility are submitted to the National Radiology Data Registry (NRDR) Dose Index Registry (DIR) with the [employer] ([employer]). RADIATION OPTIMIZATION: All CT scans at this facility use at least one of these dose optimization te chniques: automated exposure control; mA and/or kV adjustment per patient size (includes targeted exa ms where dose is matched to clinical indication); or iterative reconstruction.
== END 2024-10-03 03:08 ==
PROVIDERS: PCP Family Medicine; Visit Provider Family Medicine
DX: R91.8 Other nonspecific abnormal finding of lung field (principal)
CPT/HCPCS: 71250

== ENCOUNTER 2025-02-27 12:37 | Outpatient (CLI) | payer MEDICARE, SELFPAY ==
--- NOTE | 2025-02-27 12:30 | DI.RAD_ITS ---
Exam(s) XR KNEE RT 3V AP,LAT,LUIS XR TIB/FIB RT EXAM: XR KNEE RT 3V AP,LAT,LUIS and XR tib/fib RT CLINICAL HISTORY: knee pain, c/o arthritis,m25.561. TECHNIQUE: 2D digital imaging was performed of the right tib/fib and knee. Five views obtained. AP , lateral and PA tunnel views were obtained. COMPARISON: CR RIGHT KNEE 3 VIEWS from 01/20/2012 CR RIGHT KNEE 3 VIEWS from 02/06/2013 CR,XR XR CHEST 2V PA LATERAL from 06/28/2024 FINDINGS: BONES: No acute fracture is present. No bony destructive lesion is seen. The tibia and fibular are un remarkable. The visualized ankle joint is unremarkable. JOINTS: There is moderate narrowing of the medial femoral tibial joint. Osteophytes are seen involvi ng all 3 joint compartments. No joint effusion is seen. SOFT TISSUE: Normal. IMPRESSION: 1. Moderate osteoarthritis of the right knee. 2. Otherwise, unremarkable examination. DATA REPOSITORY: RADIATION DOSE DELIVERED:
== END 2025-02-27 12:57 ==
LOC: DI 12:38
PROVIDERS: PCP Family Medicine; Visit Provider Physician Assistant
DX: M17.11 Unilateral primary osteoarthritis, right knee (principal)
CPT/HCPCS: 73562; 73590

== ENCOUNTER 2025-02-28 00:41 | Outpatient (CLI) | payer MEDICARE, SELFPAY ==
--- NOTE | 2025-02-28 07:30 | DI.US_ITS ---
Exam(s) US LOWER EXTREMITY VENOUS RT EXAM: US LOWER EXTREMITY VENOUS RT CLINICAL HISTORY: leg swelling, right calf pain.,? DVT TECHNIQUE: Grayscale, color, and doppler imaging of the deep venous system of the right lower extrem ity was performed. COMPARISON: US US ECHOCARDIOGRAM from 06/28/2024 FINDINGS: There is no evidence of intraluminal thrombus and there is normal compression and augmentation demons trated within the common femoral vein, femoral vein, and popliteal vein. In the ipsilateral calf the interrogated veins also exhibit normal compression/ augmentation properti es. The ipsilateral saphenofemoral junction is patent. IMPRESSION: 1. No evidence of DVT in the right lower extremity. DATA REPOSITORY:
== END 2025-02-28 01:01 ==
LOC: DI 00:41
PROVIDERS: PCP Family Medicine; Visit Provider Physician Assistant
DX: R60.9 Edema, unspecified (principal)
CPT/HCPCS: 93971